=== PATIENT | male | born 1945 ===

== ENCOUNTER 2022-12-17 07:17 | Inpatient (IN) | payer MEDICARE, OTHER, SELFPAY ==
[2022-12-17] VITALS (11 sets, daily range): BP systolic 124–154; BP diastolic 58–80; PULSE 67–100; RESP 16–20; TEMP 36.5–37.3; O2SAT 89–100; BMI 25.0
--- NOTE | ~2022-12-17 | CT_ITS ---
EXAM: Contrast-enhanced CT scan of the chest, abdomen, and pelvis. INDICATION: Fall. Chest and abdominal trauma. Lower back pain. COMPARISON: Lumbar spine x-rays June 28, 2019 TECHNIQUE: Multidetector helical imaging of the chest, abdomen, and pelvis was obtained from the thoracic inlet through the pubic symphysis following administration of 85 cc of Omnipaque 350 IV contrast. Coronal and sagittal reformatted images that were obtained were also reviewed. This CT examination was performed using dose optimization techniques as appropriate, variously including the following: *Automated exposure control *Adjustment of mA and/or kV according to patient size (this includes techniques or standardized protocols for targeted exams where dose is matched to indication/reason for exam; i.e. extremities or head) *Use of iterative reconstruction technique DLP: 990 mGy-cm FINDINGS: CHEST: Central airways are patent although some mild peripheral mucous plugging is noted. The lungs are adequately aerated. There are moderate emphysematous changes present. There are a few small calcified and noncalcified pleural plaques appreciated. There is suspected compressive atelectasis of the lingula. Small left-sided pleural effusion with overlying airspace disease, nonspecific but likely atelectasis. There is no pneumothorax. No suspicious pulmonary nodules. The heart is normal in size. Coronary artery calcifications are present. There is no pericardial effusion. Normal caliber thoracic aorta. Mildly dilated main pulmonary artery suggesting pulmonary arterial hypertension. No gross mediastinal or hilar lymphadenopathy. No pathologically enlarged axillary lymph nodes. ABDOMEN/PELVIS: The liver is normal in size. The gallbladder is normal in appearance. There is mild fatty atrophy of the pancreas. The spleen is unremarkable. There are numerous hypodense foci of the left kidney, some of which demonstrate cystic characteristics but many of which are too small to accurately characterize. There is no hydronephrosis of the left kidney. There is a mild perinephric stranding of the left kidney which is nonspecific. There is a 2.9 cm left adrenal mass which is nonspecific. The right kidney and right adrenal gland are not present. The stomach is decompressed. Normal caliber loops of small and large bowel. Mild colonic stool burden. Normal appendix. There is mild circumferential thickening of the distal sigmoid colon and rectum with minimal pericolonic mesenteric stranding, nonspecific. Severe atherosclerotic disease of the abdominal aorta. There is minimal dilatation of the infrarenal abdominal aorta measuring up to 2.5 cm. No gross retroperitoneal lymphadenopathy. The bladder is normal in appearance. The prostate gland is normal in size. Mild mild colonic diverticulosis without CT evidence to suggest active diverticulitis. No inguinal lymphadenopathy. No well defined pelvic fluid collection. OSSEOUS STRUCTURES Diffuse osteopenia. Old postsurgical changes of the left shoulder. Old healed bilateral rib fractures. Moderate diffuse degenerative changes of the spine. T9 compression deformity, age indeterminate. CT/CT abdomen pelvis w IV con IMPRESSION: 1. Moderate emphysema. 2. Small left-sided pleural effusion with overlying airspace disease, nonspecific but likely atelectasis. 3. Mildly dilated main pulmonary artery suggesting pulmonary arterial hypertension. 4. 2.9 cm left adrenal mass. This is a nonspecific finding. This can be further evaluated with nonemergent adrenal protocol MRI as clinically indicated. 5. Numerous hypodense foci of the left kidney, some of which demonstrate cystic characteristics but many of which are too small to accurately characterize. These can be further evaluated with dedicated renal ultrasound. 6. Mild colonic diverticulosis without CT evidence to suggest active diverticulitis. 7. Mild circumferential thickening of the distal sigmoid colon and rectum with minimal pericolonic mesenteric stranding. This is a nonspecific finding but may represent proctitis. 8. T9 compression deformity, age indeterminate.
--- NOTE | ~2022-12-17 | CT_ITS ---
EXAM: Noncontrast CT scan of the head and cervical spine. INDICATION: Fall with head strike. Pain. COMPARISON: Head CT the 2019 TECHNIQUE: Axial slices were obtained from skull base to vertex and displayed. This was followed by helical, multislice, multidetector axial images from the occiput to the upper thorax. Coronal and sagittal reformats of the cervical spine in addition to coronal reformats of the head were obtained at the technologist workstation. DLP: 1165 mGy-cm FINDINGS: HEAD: There is no evidence of acute intracranial hemorrhage or territorial infarction. No abnormal mass effect or midline shift is appreciated. Ramirez-white differentiation is well preserved. No extra-axial fluid collections. The ventricular system and cortical sulci are prominent, consistent with age-appropriate volume loss. Mild cerebellar volume loss is also appreciated. There are areas of low density in the periventricular and subcortical white matter, most consistent with sequelae of microvascular ischemic change. The osseous structures and soft tissues are normal. Similar small lipoma of the left frontal scalp. There is mild to moderate calcifications of the cavernous internal carotid arteries. The visualized paranasal sinuses and mastoid air cells are well aerated. SPINE: The cervical spine is visualized in its entirety. Alignment is within normal limits. Cervical vertebral body heights are maintained. There is mild narrowing of the C3/4 disc space height. Other cervical disc spaces are relatively well-maintained. There is moderate diffuse facet hypertrophy bilaterally with osseous fusion of most facet joints throughout the cervical spine. Coarse calcifications of the right thyroid lobe. Visualized lung apices are well aerated. CT/CT cervical spine wo IV con IMPRESSION: 1. No acute intracranial pathology. 2. No fractures or dislocations of the cervical spine.
--- NOTE | ~2022-12-17 | US_ITS ---
EXAMINATION: US VENOUS ULTRASOUND WITH DOPPLER LOWER EXTREMITY, BILATERAL CLINICAL INFORMATION: History of cough bilaterally bilateral calf pain COMPARISON: None available. TECHNIQUE: Ultrasound of the deep veins is performed from the hip to the calf with compression sonography and color and pulse Doppler assessment. Spectral analysis with color-flow imaging is performed. FINDINGS: RIGHT: There is normal venous compression and respiratory variation and augmented flow. The visualized common femoral vein, superficial femoral vein, profunda femoral vein, popliteal vein, and the trifurcation region shows no evidence of deep venous thrombosis. Right peroneal vein not well visualized limiting evaluation at this level. Right popliteal fossa cyst measuring 2.4 x 1.8 cm. Splayed lymph node in the right groin measuring 2.5 x 0.4 cm. LEFT: There is normal venous compression and respiratory variation and augmented flow. The visualized common femoral vein, superficial femoral vein, profunda femoral vein, popliteal vein, and the trifurcation region shows no evidence of deep venous thrombosis. There is no significant popliteal fossa cyst. If the patient's symptoms persist, followup ultrasound in 5 days 7 days might be of value to exclude proximal propagation from a non-visualized calf vein. US/US venous duplex LE BI IMPRESSION: 1. No DVT demonstrated in the bilateral lower extremity. 2. Right peroneal vein not well visualized limiting evaluation at this level. 3. Right popliteal fossa cyst measuring 2.4 x 1.8 cm.
--- NOTE | ~2022-12-17 | CT_ITS ---
EXAMINATION: CT THORACIC AND LUMBAR SPINE WITHOUT CONTRAST CLINICAL INDICATION: Back pain. COMPARISON: Lumbar spine 06/28/2019. TECHNIQUE: Axial 2 mm thin and reformatted 2 mm thin sagittal and coronal images of thoracic and lumbar spine were obtained without contrast. This CT examination was performed using dose optimization technique as appropriate, variously including the following: Automated exposure control Adjustment of MA and/or KV according to patient size(this includes techniques or standardized protocols for targeted exams where dose is matched to indication/reason for exam; extremities or head. Use of iterative reconstruction techniques. DLP: 1916 mGy-cm FINDINGS: THORACIC SPINE: Severe osteopenia is noted. On sagittal reconstructed images there is exaggerated thoracic kyphosis. There is mild loss of T11 vertebral height of indeterminate age. There is no posterior spinal component causing spinal canal stenosis. The neural foramina are patent bilaterally. Rest of the vertebral heights is normal. There is smooth calcification of anterior longitudinal ligament likely ankylosing spondylitis. No aggressive lytic or sclerotic process seen. Visualized bony thorax is unremarkable. The lungs are well expanded and clear. There are small bilateral pleural effusions with right lower lobe consolidation and air bronchograms. There are calcified pleural plaques posteriorly on the left. Heart size enlarged. No pericardial effusion. There are coronary artery calcifications present. LUMBAR SPINE: There is severe osteopenia. There is normal lumbar lordosis. The vertebral heights, alignment and disc heights are normal. No visible acute fracture, dislocation or subluxation seen. There is endplate sclerosis L5-S1 disc level. The disc levels are maintained normal. There is moderate bilateral L5-S1, mild L4-L5 facet joint arthropathy. 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 Otherwise rest of the paravertebral soft tissues are normal. The SI joints, the sacrum and iliac bones are grossly unremarkable. There are bilateral renal cysts and nonobstructive radiopaque calculi left kidney. The right kidney is absent. The urinary bladder is distended. CT/CT thoracic spine wo IV con IMPRESSION: Exaggerated thoracic kyphosis with ankylosing spondylitis throughout thoracic spine. There is compression fracture of T11 vertebra with mild anterior wedging of indeterminate age. Correlate with bone scan. The lumbar spine is grossly unremarkable with no acute fracture seen. There are bilateral small pleural effusions with the right lower lobe consolidation. Right kidney is absent correlate with clinical exam. Left renal calculi without caliectasis or hydronephrosis. Multiple left renal cysts.
--- NOTE | 2022-12-17 07:21 | ECG_ITS ---
Test Reason : WEAKNESS Blood Pressure : / mmHG Vent. Rate : 107 BPM Atrial Rate : 107 BPM P-R Int : 124 ms QRS Dur : 094 ms QT Int : 316 ms P-R-T Axes : 056 049 076 degrees QTc Int : 421 ms Sinus tachycardia Inferior infarct , age undetermined ST & T wave abnormality, consider lateral ischemia Abnormal ECG When compared with ECG of 09-JUN-2019 16:33, Vent. rate has increased BY 51 BPM Non-specific change in ST segment in Lateral leads Nonspecific T wave abnormality now evident in Inferior leads T wave inversion now evident in Lateral leads Referred By: Odessa Momin Electronically Signed By:LOR GUZMAN MD
--- NOTE | 2022-12-17 07:37 | ED_ITS ---
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 No head strike or loss of consciousness per patient however poor historian. Daughter at bedside reports the patient's gait has been slowed, he has been confused, has had multiple falls around the house, has not wanted to get out of bed, it has been waking up sweating over the last 4 days which has been a drastic change from his baseline. Patient walks with a cane at baseline however as needed a walker over the past week. Patient's main complaint today is back pain and generalized weakness. Denies fatigue, fevers/chills, chest pain, shortness of breath, cough, nausea, vomiting, diarrhea, constipation, hematuria, dysuria, saddle paresthesias, urinary/bowel incontinence and retention. Per daughter at the bedside who he lives with patient has not been eating or drinking much. On EMS arrival patient was found to be hypoglycemic at 42 and was given a tube of glucose a D 10, glucose increased to 150. Related Data Allergies Allergy/AdvReac Type Severity Reaction Status Date / Time No Known Allergies Allergy Unknown UNKNOWN Verified 12/17/22 07:39 [NO KNOWN ALLERGIES] Review of Systems Review of Systems: Constitutional : No Weight loss, No Fever, No Chills, + Fatigue, + Malaise Eyes: No Eye Pain, No Swelling, No Redness Cardiovascular : No Chest Pain, No SOB, No Dyspnea on Exertion, No Orthopnea, No Edema, No Palpitations Respiratory : No Cough, No Sputum, No Wheezing Gastrointestinal : No Nausea, No Vomiting, No Diarrhea, No Constipation, No abdominal Pain, No Hematochezia, No Melena Genitourinary : No Dysuria, No Urinary Frequency, No Hematuria, Musculoskeletal : + back pain, No Myalgias, No Joint Swelling Skin : No Skin Lesions, No rash Neuro : + Weakness, No Numbness, No Dizziness, No Headache Heme/Lymph: No Bruising, No Bleeding,No Lymphadenopathy All other systems reviewed and are negative Yes all other systems are reviewed and are negative COUNT INCLUDES THE [facility] Past Medical History Attestation statement: The following information was validated with the patient. Source: old records reviewed and nursing notes reviewed Medical History (Updated 12/17/22 @ 11:42 by JULIEN Albright) Compression fracture of vertebrae Crohn's colitis Depression DVT (deep venous thrombosis) Emphysema of lung Frequent falls History of ETOH abuse Kidney anomaly, congenital Kyphosis Mild dementia Poor balance PVD (peripheral vascular disease) Spinal stenosis Tremor Type 2 diabetes mellitus Social History Social History Alcohol intake: current Alcohol intake frequency: former alcohol drinker Smoked in Last 30 Days: Yes Use of substances other than those prescribed or required for medical reasons: No Advance Directives: No Physical Exam Vital Signs: Vital Signs: Last Vital Signs Temp 99.1 F 12/17/22 11:19 Pulse 73 12/17/22 11:19 Resp 16 12/17/22 11:19 BP 128/59 L 12/17/22 11:19 Pulse Ox 100 12/17/22 11:19 O2 Del Method Nasal Cannula 12/17/22 11:19 O2 Flow Rate 3 12/17/22 11:19 BMI result Body Mass Index 25.0 Appearance: Alert.? Oriented X3.? No acute distress.? Appears uncomfortable lying on his back. Head: Normocephalic, atraumatic, no step-offs or deformities Eyes: Pupils equal, round and reactive to light.? ENT: Pharynx normal.? Neck: Normal inspection.? Neck supple.? CVS: Rapid rate normal rhythm, likely sinus tachycardia..? Pulses normal.? Respiratory: No respiratory distress.? Breath sounds normal.? Abdomen: Soft, nontender, distended abdomen. Normoactive bowel sounds thr oughout. Skin: Skin warm and dry.? Normal skin color.? Normal skin turgor.? Extremities: No lower extremity edema.? No calf ttp. Global weakness. Back: No midline tenderness, no C-spine tenderness, full range of motion, no CVA tenderness bilaterally + bilateral lumbar paraspinous tenderness Neuro: Oriented X 3.? No motor deficit.? No sensory deficit. CN 2-12 intact . No saddle paresthesias. Course Reevaluation(s) Reevaluation #1: CBC with slight leukocytosis 11.9 and a normocytic anemia. Chronic thrombocytopenia noted not deviating from baseline. Potassium 2.7 oral potassium will be given at this time. No other acute electrolyte abnormalities requiring intervention. Patient is noted to have an elevated CPK consistent with acute rhabdomyolysis likely secondary to falls. Fluids will be given. Troponin 22.4, EKG nonischemic unlikely ACS. BNP within normal limits unlikely CHF. Salicylates acetaminophen negative. COVID negative. Pending repeat troponin, CT head, neck, chest, abdomen pelvis. Time: 09:10 Reevaluation #2: CT head and brain with no acute intracranial pathology. No fractures or disloc ations of the cervical spine. CT abdomen, chest pending. Venous duplex pending. Time: 10:52 Reevaluation #3: DVT study bilaterally with no DVT demonstrated. Right peroneal vein not well visualized limiting evaluation at that level. Right popliteal fossa cyst measuring 2.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 Colonic diverticulosis without active diverticulitis. Mild circumferential wall thickening of sigmoid colon and rectum with proctocolitis mesenteric stranding, could represent proctitis, T9 compression deformity. Will order antibiotics at this time for possible proctitis, patient poor historian, slight white count. Will also order to Lidoderm patch for T9 compression deformity. This is likely secondary to falls. UA pending. Discussed case with hospitalist. Time: 11:41 Medications Administered Discontinued Medications Generic Name Dose Route Start Last Admin Trade Name Freq PRN Reason Stop Dose Admin Sodium Chloride 1,000 mls @ 999 mls/hr 12/17/22 09:15 12/17/22 09:52 Ns IV 12/17/22 10:15 999 mls/hr .Q1H1M CHRIS Administration Iohexol 100 ml 12/17/22 10:32 12/17/22 10:32 Iohexol 350 Mg/Ml 100 Ml Infus..Btl IV 12/17/22 10:33 85 ml ONCE ONE Administration Morphine Sulfate 4 mg 12/17/22 09:35 12/17/22 09:40 Morphine Sulfate 4 Mg/Ml Cartridge IVPUSH 12/17/22 09:36 4 mg ONCE ONE Administration Protocol Potassium Chloride 40 meq 12/17/22 09:09 12/17/22 09:40 Potassium Chloride Packet 20 Meq Packet PO 12/17/22 09:10 40 meq ONCE ONE Administration Medical Decision Making Medical Decision Making [facility] Narrative: 0740 77-year-old male presenting with increasing generalized weakness and multiple falls on Eliquis. Physical exam significant for stage 2 pressure ulcer to L hip region. Likely physical deconditioning with possible UTI vs electrolyte abnormalities versus dysrhythmia. On exam low suspicion for traumatic injury to head, neck, chest, abdomen and pelvis. Unlikely stroke, posterior stroke. Back pain likely contusion, musculoskeletal, muscle spasm, will rule out fracture, dislocation, traumatic subluxations. No signs of cord compression, cauda equina, myelopathy or epidural abscess. Will rule out ACS although unlikely based off patient history. Patient's weakness is likely contributed to physical deconditioning and cognitive decline. Fall likely mechanical in nature or secondary to physical deconditioning I do not suspect preceding symptoms to fall according to daughter and patient. Will rule out rhabdomyolysis as patient has had multiple falls and unclear down time. I do not suspect syncopal episodes or seizures. Any will rule out pneumonia. Low suspicion for any PEs, DVT secondary to pa tient being on anticoagulants and med compliant. However due to calf pain will obtain venous duplex of bilateral lower extremities to rule out DVT. No signs of arterial occlusion or threat to limb. Pressure ulcer likely simple stage II, no signs of osteomyelitis or overlying erythema or erysipelas. Plan- labs, urine, imaging. Differential Diagnosis Differential Diagnoses: The differential diagnosis associated with the presentation includes Likely physical deconditioning with possible UTI vs electrolyte abnormalities versus dysrhythmia. On exam low suspicion for traumatic injury to head, neck, chest, abdomen and pelvis. Unlikely stroke, posterior stroke. Back pain likely contusion, musculoskeletal, muscle spasm, will rule out fracture, dislocation, traumatic subluxations. No signs of cord compression, cauda equina, myelopathy or epidural abscess. Will rule out ACS although unlikely based off patient hist ory. Patient's weakness is likely contributed to physical deconditioning and cognitive decline. Fall likely mechanical in nature or secondary to physical deconditioning I do not suspect preceding symptoms to fall according to daughter and patient. Will rule out rhabdomyolysis as patient has had multiple falls and unclear down time. I do not suspect syncopal episodes or seizures. However due to calf pain will obtain venous duplex of bilateral lower extremities to rule out DVT. No signs of arterial occlusion or threat to limb. Pressure ulcer likely simple stage II, no signs of osteomyelitis or overlying erythema or erysipelas. Admission/Observation Consideration of admission/observation: Escalation of care including admiss ion/observation considered In this 77-year-old male with acute change from baseline and multiple falls on AC I considered admission. Consult Healthcare Provider Management of the patient was discussed with: Hospitalist Lab Data MDM Lab Attestation statement: I reviewed the patient's lab results. 12/17/22 07:54 12/17/22 07:54 Labs: Lab Results 12/17/22 12/17/22 12/17/22 Range/Units 07:54 07:54 07:54 WBC 11.9 H (4.8-10.8) X10*3/uL RBC 4.19 L (4.60-5.80) X10*6/uL Hgb 12.6 L (14.0-18.0) g/dl Hct 39.5 L (42.0-52.0) % MCV 94.3 (80.0-98.0) fL MCH 30.1 (27.0-33.0) pg MCHC 31.9 (31.0-36.0) g/dl RDW 14.6 (11.0-16.0) % Plt Count 142 L (160-400) X10*3/uL MPV 10.1 (9.4-12.4) fL Immature Gran % (Auto) 1.3 H (0.0-0.4) % Neut % (Auto) 85.8 H (45-73) % Lymph % (Auto) 6.3 L (20-40) % Mccormick % (Auto) 6.2 (2-11) % Eos % (Auto) 0.1 (0-4) % Baso % (Auto) 0.3 (0-2) % Lymph # (Auto) 0.8 L (1.2-4.9) X10*3/uL Mccormick # (Auto) 0.7 (0.1-1.2) X10*3/uL Eos # (Auto) 0.0 (0.0-0.4) X10*3/uL Baso # (Auto) 0.0 (0.0-0.2) X10*3/uL Abs Immat Gran (auto) 0.16 H (0.00-0.03) X10*3/uL Absolute Neuts (auto) 10.2 H (2.0-8.3) x10*3/uL Absolute Nucleated RBC 0.000 (0.0-0.012) X10*3/uL Nucleated RBC % (auto) 0.0 (0.0-0.2) /100WBC PT 12.3 (11.1-13.3) SEC INR 1.0 (0.9-1.1) Sodium 136 (135-145) mmol/L Potassium 2.7 L (3.3-5.1) mmol/L Chloride 102 (96-108) mmol/L Carbon Dioxide 23 (22-29) mmol/L Anion Gap 14 (12-20) BUN 11 (9-16) mg/dL Creatinine 0.99 (0.5-1.4) mg/dL Estim Creat Clear Calc 54.3 Estimated GFR > 60 POC Glucose (60-115) mg/dL Random Glucose 190 H (60-115) mg/dL Calcium 8.4 (8.4-10.2) mg/dL Magnesium 1.8 (1.6-2.6) mg/dL Total Bilirubin 0.9 (0.0-1.0) mg/dL AST 61 H (5-37) U/L ALT 23 (0-40) U/L Alkaline Phosphatase 69 (39-117) U/L Total Creatine Kinase 1981 H (38-174) U/L Troponin I High Sens (<3.5-35.0) ng/L B-Natriuretic Peptide (<100) pg/mL Total Protein 6.1 L (6.5-8.0) g/dL Albumin 2.9 L (3.5-5.0) g/dL Salicylates (15-30) mg/dL Acetaminophen (<30) mcg/mL Ethyl Alcohol < 10 mg/dL COVID-19 ([facility]) (Negative) COVID-19 Clin Com 12/17/22 12/17/22 12/17/22 Range/Units 07:54 07:54 07:54 WBC (4.8-10.8) X10*3/uL RBC (4.60-5.80) X10*6/uL Hgb (14.0-18.0) g/dl Hct (42.0-52.0) % MCV (80.0-98.0) fL MCH (27.0-33.0) pg MCHC (31.0-36.0) g/dl RDW (11.0-16.0) % Plt Count (160-400) X10*3/uL MPV (9.4-12.4) fL Immature Gran % (Auto) (0.0-0.4) % Neut % (Auto) (45-73) % Lymph % (Auto) (20-40) % Mccormick % (Auto) (2-11) % Eos % (Auto) (0-4) % Baso % (Auto) (0-2) % Lymph # (Auto) (1.2-4.9) X10*3/uL Mccormick # (Auto) (0.1-1.2) X10*3/uL Eos # (Auto) (0.0-0.4) X10*3/uL Baso # (Auto) (0.0-0.2) X10*3/uL Abs Immat Gran (auto) (0.00-0.03) X10*3/uL Absolute Neuts (auto) (2.0-8.3) x10*3/uL Absolute Nucleated RBC (0.0-0.012) X10*3/uL Nucleated RBC % (auto) (0.0-0.2) /100WBC PT (11.1-13.3) SEC INR (0.9-1.1) Sodium (135-145) mmol/L Potassium (3.3-5.1) mmol/L Chloride (96-108) mmol/L Carbon Dioxide (22-29) mmol/L Anion Gap (12-20) BUN (9-16) mg/dL Creatinine (0.5-1.4) mg/dL Estim Creat Clear Calc Estimated GFR POC Glucose (60-115) mg/dL Random Glucose (60-115) mg/dL Calcium (8.4-10.2) mg/dL Magnesium (1.6-2.6) mg/dL Total Bilirubin (0.0-1.0) mg/dL AST (5-37) U/L ALT (0-40) U/L Alkaline Phosphatase (39-117) U/L Total Creatine Kinase (38-174) U/L Troponin I High Sens 22.4 (<3.5-35.0) ng/L B-Natriuretic Peptide 82 (<100) pg/mL Total Protein (6.5-8.0) g/dL Albumin (3.5-5.0) g/dL Salicylates (15-30) mg/dL Acetaminophen (<30) mcg/mL Ethyl Alcohol mg/dL COVID-19 ([facility]) Negative (Negative) COVID-19 Clin Com See Note 12/17/22 12/17/22 12/17/22 Range/Units 07:54 07:54 10:51 WBC (4.8-10.8) X10*3/uL RBC (4.60-5.80) X10*6/uL Hgb (14.0-18.0) g/dl Hct (42.0-52.0) % MCV (80.0-98.0) fL MCH (27.0-33.0) pg MCHC (31.0-36.0) g/dl RDW (11.0-16.0) % Plt Count (160-400) X10*3/uL MPV (9.4-12.4) fL Immature Gran % (Auto) (0.0-0.4) % Neut % (Auto) (45-73) % Lymph % (Auto) (20-40) % Mccormick % (Auto) (2-11) % Eos % (Auto) (0-4) % Baso % (Auto) (0-2) % Lymph # (Auto) (1.2-4.9) X10*3/uL Mccormick # (Auto) (0.1-1.2) X10*3/uL Eos # (Auto) (0.0-0.4) X10*3/uL Baso # (Auto) (0.0-0.2) X10*3/uL Abs Immat Gran (auto) (0.00-0.03) X10*3/uL Absolute Neuts (auto) (2.0-8.3) x10*3/uL Absolute Nucleated RBC (0.0-0.012) X10*3/uL Nucleated RBC % (auto) (0.0-0.2) /100WBC PT (11.1-13.3) SEC INR (0.9-1.1) Sodium (135-145) mmol/L Potassium (3.3-5.1) mmol/L Chloride (96-108) mmol/L Carbon Dioxide (22-29) mmol/L Anion Gap (12-20) BUN (9-16) mg/dL Creatinine (0.5-1.4) mg/dL Estim Creat Clear Calc Estimated GFR POC Glucose 118 H (60-115) mg/dL Random Glucose (60-115) mg/dL Calcium (8.4-10.2) mg/dL Magnesium (1.6-2.6) mg/dL Total Bilirubin (0.0-1.0) mg/dL AST (5-37) U/L ALT (0-40) U/L Alkaline Phosphatase (39-117) U/L Total Creatine Kinase (38-174) U/L Troponin I High Sens 25.2 (<3.5-35.0) ng/L B-Natriuretic Peptide (<100) pg/mL Total Protein (6.5-8.0) g/dL Albumin (3.5-5.0) g/dL Salicylates < 5.0 L (15-30) mg/dL Acetaminophen < 17 (<30) mcg/mL Ethyl Alcohol mg/dL COVID-19 ([facility]) (Negative) COVID-19 Clin Com Independent Interpretation I performed an independent interpretation of an: EKG (Ventricular rate of 107, LA normal, QRS normal, QT/QTC normal. EKG with sinus tachycardia, no ST elevations or inversions concerning for acute ischemia.) and CT Scan (CT/CT head/brain wo IV con IMPRESSION: 1. No acute intracranial pathology. 2. No fractures or dislocations of the cervical spine. ) Radiology Impression Discussion of test interpretation with radiology: I have reviewed the radiologist's reading. Core Measures AMI core measures followed: Yes Measure exclusions: not indicated Critical Care Time Critical Care Time Critical Care Time: No Discharge Plan Discharge Clinical Impression: Frequent falls, Weakness, Rhabdomyolysis, Pressure ulcer, Lower back pain, Acute hypokalemia, Compression deformity of vertebra, Proctitis Patient Disposition: Admitted As Inpatient
[2022-12-17 07:59] LABS: Glucose, Whole Blood 118 mg/dL (60-115)
[2022-12-17 08:00] LABS: MANUAL DIFF FLAG NO
--- NOTE | 2022-12-17 08:02 | PC.NURSE ---
patient a&ox2 p/p, pt c/o 02/28 back pain, lungs diminished throughout- pt placed on 2L NC due to O2 sat of 89% pt quickly went up to 98%, decreased to 1L pt now 94%, abd is firm/distended but non tender, + bowel sounds in all quadrants, 1+ edema noted to BLE, left hip area noted bed sore and left lower leg notable abrasion which the daughter feels came from the bed pad he was laying on vs from the fall. Pt had BLE weakness- unable to lift/hold either leg, EKG performed, poc obtained as he was hypoglycemic upon arrival of ems- poc here was 118, labs drawn, pt has a history of incontinence and wears a brief but also does use the bathroom. Family at bedside, call ye within reach, will continue to monitor.
[2022-12-17 08:08] LABS: Prothrombin Time 12.3 SEC (11.1-13.3)
[2022-12-17 08:22] LABS: Alanine Aminotransferase 23 U/L (0-40); Albumin Level 2.9 g/dL (3.5-5.0); Alkaline Phosphatase 69 U/L (39-117); Anion Gap 14 (12-20); Aspartate Amino Transferase 61 U/L (5-37); B Type Natriuretic Peptide 82 pg/mL (<100); Bilirubin Total 0.9 mg/dL (0.0-1.0); Blood Urea Nitrogen 11 mg/dL (9-16); Calcium 8.4 mg/dL (8.4-10.2); Carbon Dioxide 23 mmol/L (22-29); Chloride 102 mmol/L (96-108); Creatinine Clr Calc Pharmacy 54.3; Estimated Glomerular Filt Rate > 60; Ethanol < 10 mg/dL; Glucose Random 190 mg/dL (60-115); Magnesium 1.8 mg/dL (1.6-2.6); Potassium 2.7 mmol/L (3.3-5.1); Sodium 136 mmol/L (135-145); Total Protein 6.1 g/dL (6.5-8.0)
[2022-12-17 08:24] LABS: Troponin-I High Sensitivity 22.4 ng/L (<3.5-35.0)
[2022-12-17 08:25] LABS: Basophils Percent Auto 0.3 % (0-2); Eosinophils Percent Auto 0.1 % (0-4); Hematocrit 39.5 % (42.0-52.0); Hemoglobin 12.6 g/dl (14.0-18.0); Imm Gran Abs Auto 0.16 X10*3/uL (0.00-0.03); Imm Gran Pct Auto 1.3 % (0.0-0.4); Lymphocytes Absolute Auto 0.8 X10*3/uL (1.2-4.9); Lymphocytes Percent Auto 6.3 % (20-40); Mean Corpuscular HGB Conc 31.9 g/dl (31.0-36.0); Mean Corpuscular Hemoglobin 30.1 pg (27.0-33.0); Mean Corpuscular Volume 94.3 fL (80.0-98.0); Mean Platelet Volume 10.1 fL (9.4-12.4); Monocytes Absolute Auto 0.7 X10*3/uL (0.1-1.2); Monocytes Percent Auto 6.2 % (2-11); Neutrophils Absolute Auto 10.2 x10*3/uL (2.0-8.3); Neutrophils Percent Auto 85.8 % (45-73); Platelet Count 142 X10*3/uL (160-400); Red Blood Count 4.19 X10*6/uL (4.60-5.80); Red Cell Distribution Width 14.6 % (11.0-16.0); White Blood Count 11.9 X10*3/uL (4.8-10.8)
[2022-12-17 08:28] LABS: Salicylate < 5.0 mg/dL (15-30)
[2022-12-17 08:31] LABS: COVID-19 Test Negative (Negative); IDNOW Serial# BCCEAD1C
[2022-12-17 08:34] LABS: Acetaminophen LAB < 17 mcg/mL (<30)
[2022-12-17] MEDS: Potassium Chloride Packet 20 MEQ PACKET 40 MEQ PO (09:40)
[2022-12-17] MEDS: Morphine Sulfate 4 MG/ML CARTRIDGE IVPUSH (09:40)
--- NOTE | 2022-12-17 09:49 | PC.NURSE ---
pt a&ox3, vss aside from low O2 (86) - put pt on 3L via nasal cannula, nsr on the court monitor, medications and IVF administered per provider order, orthostatic vs performed and documented. pt verbalizing 10/ center of spine pain - given morphine per provider order.
[2022-12-17] MEDS: 0.9 % Sodium Chloride 1,000 ML 999 ML IV (09:52)
--- NOTE | 2022-12-17 10:18 | PC.NURSE ---
pt's pain level reassessed post medication administration - pt verbalizing pain level slightly decreased to an 8/10. ultrasound bedside with patient. pt's daughter leaving facility stating that she needs to go home and take care of her son who has autism - verbalizes that she will either come back or call the facility looking for an update on her father.
[2022-12-17] MEDS: iohexoL 350 MG/ML 100 ML INFUS..BTL IV (10:32)
--- NOTE | 2022-12-17 11:22 | PC.NURSE ---
a&ox3, vss, nsr on the court monitor, IVF still running, pt verbalizes no indication of pain relief since the last time that he was reassessed post pain medication - pt still verbalizing 8/10 pain. pt resting comfortably with the lights dimmed. call ye placed within reach.
[2022-12-17 11:29] LABS: Troponin-I High Sensitivity 25.2 ng/L (<3.5-35.0)
[2022-12-17] MEDS: Lidocaine 4 % Patch ADH..PATCH 1 PATCH TRANSDERMA (11:44)
--- NOTE | 2022-12-17 11:47 | PC.NURSE ---
medication administered per provider order.
--- NOTE | 2022-12-17 11:50 | P.HPHOSP_ITS ---
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 Patient is alert and oriented to self only and thus incapable of providing accurate HPI. HPI obtained from phone call her daughter and chart review. Patient lives with daughter who notes patient was almost completely independent except for taking baths up until 2 weeks ago when he started to develop leg weakness and unsteadiness on his feet. Patient began using a cane occasionally during the day but severely deteriorated over the we ekend and began using a walker on Monday of this week. For the past couple of days patient apparently has barely been able to ambulate on his own and has had 10+ falls in the house. Pt and daughter deny headstrike or LOC. Daughter also notes patient has been complaining of bilateral calf pain, and patient has had some increased confusion over the past couple of days. Of note, patient has a history of Crohn's disease but is intolerant of most medications, only takes Imodium b.i.d. In the ED patient's BP little soft at 128/59. Labs were significant for leukocytosis of 11.9, stable H&H of 12.6/39 point, hypokalemia of 2.7, CPK of 1981. Troponins negative. Renal function baseline. UA positive for UTI. CT of chest showed moderate emphysema with small left-sided effusion with overlying airspace disease, likely atelectasis. Also showed likely pulmonary arterial hypertension. CT of abdomen and pelvis with numerous findings: a 2.9 cm left adrenal mass that is nonspecific and could be further evaluated with outpatient nonemergent MRI; numerous hypodense foci of left kidney; diverticulosis without evidence of diverticulitis; mild circumferential thickening in the distal sigmoid colon and rectum with minimal pericolonic mesenteric stranding possibly reflective of proctitis; and T9 compression deformity of indeterminate age. CT?of head found no acute intracranial pathology. CT of cervical spine found no fractures or dislocations. Venous duplex of lower extremities showed no DVT de monstrated bilaterally, the right peroneal vein not well visualized. Did find right popliteal fossa cyst measuring 2.4 x 1.8 cm. EKG demonstrated sinus tachycardia of [address] and T-wave abnormalities. Pt was treated with potassium chloride, morphine, IVF, and lidocaine patch. Pt will be admitted to the [facility] forl treatment and further evaluation of?rhabdomyolysis, acute metabolic encephalopathy, UTI, and generalized weakness with IVF and IV antibiotics. Review of Systems Review of Systems: Recent falls Bilateral calf pain Confusion Generalized weakness Limited in scope d/t pt's mentation Yes all other systems are reviewed and are negative [facility] Medical History Compression fracture of vertebrae Crohn's colitis Depression DVT (deep venous thrombosis) Emphysema of lung Frequent falls History of ETOH abuse Kidney anomaly, congenital Kyphosis Mild dementia Poor balance PVD (peripheral vascular disease) Spinal stenosis Tremor Type 2 diabetes mellitus Social History Alcohol intake: current Alcohol intake frequency: former alcohol drinker Patient Tobacco Use Status: Never used Tobacco Smoked in Last 30 Days: Yes Use of substances other than those prescribed or required for medical reasons: No Advance Directives: No Nutrition Risks: No Nutritional Risk Meds Allergies Allergy/AdvReac Type Severity Reaction Status Date / Time No Known Allergies Allergy Unknown UNKNOWN Verified 12/17/22 07:39 [NO KNOWN ALLERGIES] Active Medications: Current Medications Ceftriaxone Sodium 1 gm/ (Sodium Chloride) 50 mls @ 100 mls/hr IV ONCE ONE Stop: 12/17/22 12:11 Pharmacy Consult (Consult Rx Perform Med Rec) 1 each MISCELLANE ONCE PRN PRN Reason: Consult order Home Medications Medication Instructions Recorded Confirmed Last Taken Type apixaban 2.5 mg tablet (Eliquis) 2.5 mg PO BID 12/17/22 12/17/22 12/16/22 History atorvastatin 40 mg tablet 40 mg PO BEDTIME 12/17/22 12/17/22 12/16/22 History bupropion HCl 150 mg tablet,12 hr 150 mg PO DAILY 12/17/22 12/17/22 Unknown History sustained-release cilostazol 100 mg tablet 100 mg PO BID 12/17/22 12/17/22 Unknown History glyburide 5 mg tablet 10 mg PO BID 12/17/22 12/17/22 Unknown History loperamide 2 mg capsule 4 mg PO BID 12/17/22 12/17/22 12/16/22 History phenylephrine-guaifenesin ER 25 1 tab PO DAILY 12/17/22 12/17/22 Unknown History mg-800 mg tablet,extended release,12hr pioglitazone 30 mg tablet 30 mg PO DAILY 12/17/22 12/17/22 Unknown History propranolol 40 mg tablet 40 mg PO DAILY 12/17/22 12/17/22 Unknown History Physical Exam Vital Signs and Narrative: Vital Signs: Last Vital Signs Temp 99.1 F 12/17/22 11:19 Pulse 73 12/17/22 11:19 Resp 16 12/17/22 11:19 BP 128/59 L 12/17/22 11:19 Pulse Ox 100 12/17/22 11:19 O2 Del Method Nasal Cannula 12/17/22 11:19 O2 Flow Rate 3 12/17/22 11:19 BMI result Body Mass Index 25.0 Constitutional: Alert, pleasantly confused, in no acute distress. Mental Status: Oriented to person only, not to place, time, or situation. Eyes: Pupils are equal, round, and reactive to light. Ear, Nose, and Throat: Oropharynx clear, mucous membranes moist. Ears and nose without deformities. Trachea midline. Respiratory: Clear to auscultation bilaterally. No wheezing, rales, or rhonchi. Cardiovascular: S1, S2 regular. No murmurs, rubs, or gallops. Gastrointestinal: Abdomen soft, non-distended. Diffuse tenderness radiating to back. Normal bowel sounds. Neurologic: Positive straight leg test. Ankle and knee reflexes 1+ bilaterally Skin: Stage II decubitus ulcer on left hip. See picture below. Musculoskeletal: No cyanosis or clubbing. Extremities: No edema. Psychiatric: Normal mood and affect. Results Labs 12/17/22 07:54 12/17/22 07:54 Labs: Laboratory Results - last 24 hr 12/17/22 12/17/22 12/17/22 07:54 07:54 07:54 MCV 94.3 MCH 30.1 MCHC 31.9 RDW 14.6 Plt Count 142 L MPV 10.1 Immature Gran % (Auto) 1.3 H Neut % (Auto) 85.8 H Lymph % (Auto) 6.3 L Carlisle % (Auto) 6.2 Eos % (Auto) 0.1 Baso % (Auto) 0.3 Lymph # (Auto) 0.8 L Carlisle # (Auto) 0.7 Eos # (Auto) 0.0 Baso # (Auto) 0.0 Abs Immat Gran (auto) 0.16 H Absolute Neuts (auto) 10.2 H Absolute Nucleated RBC 0.000 Nucleated RBC % (auto) 0.0 PT 12.3 INR 1.0 Anion Gap 14 Estim Creat Clear Calc 54.3 Estimated GFR > 60 POC Glucose Random Glucose 190 H Calcium 8.4 Magnesium 1.8 Total Bilirubin 0.9 AST 61 H ALT 23 Alkaline Phosphatase 69 Total Creatine Kinase 1981 H B-Natriuretic Peptide Total Protein 6.1 L Albumin 2.9 L Salicylates Acetaminophen Ethyl Alcohol < 10 COVID-19 ([facility]) COVID-19 Clin Com 12/17/22 12/17/22 12/17/22 07:54 07:54 07:54 MCV MCH MCHC RDW Plt Count MPV Immature Gran % (Auto) Neut % (Auto) Lymph % (Auto) Carlisle % (Auto) Eos % (Auto) Baso % (Auto) Lymph # (Auto) Carlisle # (Auto) Eos # (Auto) Baso # (Auto) Abs Immat Gran (auto) Absolute Neuts (auto) Absolute Nucleated RBC Nucleated RBC % (auto) PT INR Anion Gap Estim Creat Clear Calc Estimated GFR POC Glucose Random Glucose Calcium Magnesium Total Bilirubin AST ALT Alkaline Phosphatase Total Creatine Kinase B-Natriuretic Peptide 82 Total Protein Albumin Salicylates < 5.0 L Acetaminophen < 17 Ethyl Alcohol COVID-19 ([facility]) Negative COVID-19 Clin Com See Note 12/17/22 07:54 MCV MCH MCHC RDW Plt Count MPV Immature Gran % (Auto) Neut % (Auto) Lymph % (Auto) Carlisle % (Auto) Eos % (Auto) Baso % (Auto) Lymph # (Auto) Carlisle # (Auto) Eos # (Auto) Baso # (Auto) Abs Immat Gran (auto) Absolute Neuts (auto) Absolute Nucleated RBC Nucleated RBC % (auto) PT INR Anion Gap Estim Creat Clear Calc Estimated GFR POC Glucose 118 H Random Glucose Calcium Magnesium Total Bilirubin AST ALT Alkaline Phosphatase Total Creatine Kinase B-Natriuretic Peptide Total Protein Albumin Salicylates Acetaminophen Ethyl Alcohol COVID-19 ([facility]) COVID-19 Clin Com Imaging Radiologist's Impressions: Impressions Abdomen/Pelvis CT 12/17/22 10:29 IMPRESSION: 1. Moderate emphysema. 2. Small left-sided pleural effusion with overlying airspace disease, nonspecific but likely atelectasis. 3. Mildly dilated main pulmonary artery suggesting pulmonary arterial hypertension. 4. 2.9 cm left adrenal mass. This is a nonspecific finding. This can be further evaluated with nonemergent adrenal protocol MRI as clinically indicated. 5. Numerous hypodense foci of the left kidney, some of which demonstrate cystic characteristics but many of which are too small to accurately characterize. These can be further evaluated with dedicated renal ultrasound. 6. Mild colonic diverticulosis without CT evidence to suggest active diverticulitis. 7. Mild circumferential thickening of the distal sigmoid colon and rectum with minimal pericolonic mesenteric stranding. This is a nonspecific finding but may represent proctitis. 8. T9 compression deformity, age indeterminate. Cervical Spine CT 12/17/22 10:29 IMPRESSION: 1. No acute intracranial pathology. 2. No fractures or dislocations of the cervical spine. Chest CT 12/17/22 10:29 IMPRESSION: 1. Moderate emphysema. 2. Small left-sided pleural effusion with overlying airspace disease, nonspecific but likely atelectasis. 3. Mildly dilated main pulmonary artery suggesting pulmonary arterial hypertension. 4. 2.9 cm left adrenal mass. This is a nonspecific finding. This can be further evaluated with nonemergent adrenal protocol MRI as clinically indicated. 5. Numerous hypodense foci of the left kidney, some of which demonstrate cystic characteristics but many of which are too small to accurately characterize. These can be further evaluated with dedicated renal ultrasound. 6. Mild colonic diverticulosis without CT evidence to suggest active diverticulitis. 7. Mild circumferential thickening of the distal sigmoid colon and rectum with minimal pericolonic mesenteric stranding. This is a nonspecific finding but may represent proctitis. 8. T9 compression deformity, age indeterminate. Head CT 12/17/22 10:29 IMPRESSION: 1. No acute intracranial pathology. 2. No fractures or dislocations of the cervical spine. Venous Duplex 12/17/22 10:34 IMPRESSION: 1. No DVT demonstrated in the bilateral lower extremity. 2. Right peroneal vein not well visualized limiting evaluation at this level. 3. Right popliteal fossa cyst measuring 2.4 x 1.8 cm. 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 Pt will be admitted to the [facility] forl treatment and further evaluation of?rhabdomyolysis, acute metabolic encephalopathy, UTI, and generalized weakness with IVF and IV antibiotics. Rhabdomyolysis Patient's creatinine kinase 1981 Likely secondary to recent falls Pt received IVF in ED Will place on Lactated Ringers Follow CPK Recent falls/leg weakness Pt with 10+ falls in the past 3-4 days Pt apparently went from ambulating on own to not being able to walk at all in 2 weeks Patient with 1+ knee and ankle reflexes bilaterally, positive straight leg test, abdominal pain radiating to back Will get MRI of lumbar spine to r/o cord compression PT consult Acute metabolic encephalopathy Likely secondary to UTI: UA positive for leukocyte esterase, RBC, WBC, 4+ bacteria Will treat with ceftriaxone, started on 12/17/2022 Hypokalemia Patient's potassium 2.7 at time of admission Supplemented with 40 mEq p.o. in ED Patient placed on continuous lactated Ringer's Follow BMP, supplement as necessary T9 compression deformity, age indeterminate Unclear etiology, pt with long hx of spinal arthritis, hx of spinal frax 2-3 yeras ago, possibly secondary to recent falls Lidocaine patch for pain management Question of proctitis CT found mild circumferential thickening the distal sigmoid colon and rectum with minimal pericolonic mesenteric stranding Is patient experiencing symptoms question carlos Abnormal CT of abdomen and pelvis findings CT found 2.9 cm left adrenal mass and numerous hypodense foci in the left kidney Chron's disease Not in acute exacerbation Continue Imodium Peripheral vascular disease Continue cilostazol Aqa-ohoexme-lwnwbnerx diabetes Sliding-scale insulin Continue glyburide, pioglitazone HLD Continue statin Hx of DVT Patient with significant history of multiple full-leg DVTs that needed to be surgically removed Continue Eliquis for now for DVT prophylaxis Consider discontinuing upon discharge d/t recent falls HTN Continue propranolol Nicotine dependence Patient smokes 1-2 packs per day Nicotine replacement therapy: Transderm patch 21 mg Mood disorder Continue bupropion DNR/DNI Attending:?Dr. Rey DVT Prophylaxis: On Eliquis Pt will require a hospitalization of at least two nights for treatment and further evaluation of?rhabdomyolysis, acute metabolic encephalopathy, UTI, and generalized weakness with IVF and IV antibiotics. Time Spent With Patient Time: Total time managing care of this patient today ____ minutes. Quality Stroke Does the patient have a stroke diagnosis?: No VTE Prior VTE?: No VTE Risk Level:: Medical - moderate - high VTE Device Contraindication: Treatment Not Indicated VTE Drug Contraindication: N/A - Med Ordered
--- NOTE | 2022-12-17 12:15 | PHA.MEDREC ---
Pharmacy Consult ? Medication Reconciliation Pharmacy has completed the medication reconciliation. Spoke to patient's daughter to confirm meds. Per patient's daughter, patient has scripts for propanolol 40mg BID and buproprion 150mg SR BID, however the patient only takes them daily because the patient will take them too close together .
--- NOTE | 2022-12-17 12:46 | PC.NURSE ---
per provider order - straight cath performed. 300ml of dark soto urine post catheter administration. pt tolerated catheter administration well. urine sample obtained and sent to lab by [facility].
[2022-12-17 12:56] LABS: Appearance Urine Cloudy; Color Urine Yellow; Glucose Urine UA Negative (Negative); Leukocyte Esterase Urine Small (1+) (Negative); Nitrite Urine Negative (Negative); PH 5.5 (5.0-9.0); Specific Gravity - Urine >= 1.030 (1.005-1.025); UMIC TRIGGER UACC YES; Urine Blood Moderate (2+) (Negative); Urine Ketones Negative (Negative); Urine Protein 30 (1+) mg/dL (Neg-Trace)
[2022-12-17 13:04] LABS: Amphetamine Screen Urine Not Detected (Not Detect); Barbiturates, Urine Not Detected (Not Detect); Benzodiazepines Screen Urine Not Detected (Not Detect); Cannabinoid Screen Urine Not Detected (Not Detect); Cocaine Screen Urine Not Detected (Not Detect); Fentanyl, urine Not Detected (Not Detect); Opiate Screen Urine POSITIVE (Not Detect); Phencyclidine Screen Urine Not Detected (Not Detect)
--- NOTE | 2022-12-17 13:13 | PC.NURSE ---
tech and phlebotomy in room drawing blood cultures so abx can be administered.
[2022-12-17 13:16] LABS: Bacteria Urine 4+ (None Seen); UACC Culture Trigger YES; WBC Urine 21-50 /HPF (0-5)
[2022-12-17] MEDS: cefTRIAXone sodium 1 GM in 0.9 % Sodium Chloride 50 ML IV (13:29)
--- NOTE | 2022-12-17 13:29 | PC.NURSE ---
medication administered per provider order.
[2022-12-17 13:34] LABS: Lactic Acid 1.1 mmol/L (0.5-2.0)
[2022-12-17] MEDS: Lactated Ringers 1,000 ML 100 ML IVCONT (14:14)
[2022-12-17] MEDS: Nicotine 21 MG PATCH.TD24 TRANSDERMA (14:14)
--- NOTE | 2022-12-17 14:17 | PC.NURSE ---
ivf and nicotine patch administered, PT at bedside doing eval.
--- NOTE | 2022-12-17 14:19 | PC.NURSE ---
attempted to call report, workers compensation legal secretary requested this nurse nicole text patients nurse, will do so and wait for the nurse to call the ed for report
--- NOTE | 2022-12-17 14:56 | PC.NURSE ---
report called to the floor
--- NOTE | 2022-12-17 15:05 | PC.NURSE ---
transport was notified to bring patient upstairs, ed charge nurse stated that the techs will be bringing patient upstairs as there is no transport to bring the patient
--- NOTE | 2022-12-17 15:12 | PC.NURSE ---
mri screening form this nurse did an mri screening form with the patients daughter as patient has baseline mild dementia, daughter requested the patient to have some type of sedative when going for the MRI as the patient is unable to lie flat- patient lies on the left side for comfort and is generally unable to lie on her back. HOspitalist Litzy Camejo was notified and an order for ativan was put in to give prior to the patient going to MRI and per tiger text an additional amount could be given once in MRI if needed and to notify him. This nurse did notify the nurse taking report of this and the ativan was not given in the ED as there wasn't a time slot yet for the patient to have the MRI performed.
[2022-12-17] MEDS: LORazepam 2 MG/ML VIAL 0.5 MG IVPUSH (16:29)
[2022-12-17] MEDS: Dextrose 50 % 25 GM/50 ML SYRINGE IVPUSH (18:03)
[2022-12-17 18:38] LABS: Glucose, Whole Blood 109 mg/dL (60-115)
[2022-12-17 18:38] LABS: Glucose, Whole Blood 84 mg/dL (60-115)
[2022-12-17 18:38] LABS: Glucose, Whole Blood 18 mg/dL (60-115)
[2022-12-17 18:38] LABS: Glucose, Whole Blood 22 mg/dL (60-115)
[2022-12-17 18:45] LABS: Glucose Random 139 mg/dL (60-115)
--- NOTE | 2022-12-17 19:21 | PC.NURSE ---
Nurse notified point of care reading results are 18. Asked nurse to retest point of care, results 22. Per policy 1 amp of 50% dextrose administer, and two container of orange juice administered.MD Rey made aware and stat random glucose order, per policy @ 1603 via tiger text. See documentation. Retested @1808 after administration see MAR documentation and poc was 84. Patient consumed 2 additional containers of orange juice and 50% of dinner. Retested poc at 1833 and results were 109. See documentation. Patient is resting comfortably on side, call ye in place and, bed alarm on, bed in lowest position. Frequent checks to make sure needs are met.
[2022-12-17 20:51] LABS: Glucose, Whole Blood 161 mg/dL (60-115)
[2022-12-17] MEDS: Apixaban 2.5 MG TABLET PO (21:43)
[2022-12-17] MEDS: cilostazoL 100 MG TABLET PO (21:43)
[2022-12-17] MEDS: Atorvastatin Calcium 40 MG TABLET PO (21:43)
[2022-12-18] MEDS: 0.9 % Sodium Chloride Flush 3 ML SYRINGE IVFLUSH ×3 (00:09→20:32)
[2022-12-18] MEDS: Lactated Ringers 1,000 ML 100 ML IVCONT ×3 (00:09→20:25)
[2022-12-18 03:29] VITALS: BP 148/68; PULSE 78; RESP 18; TEMP 36.6; O2SAT 95
[2022-12-18] MEDS: Acetaminophen 325 MG TABLET 650 MG PO ×4 (03:58→22:10)
[2022-12-18] MEDS: traMADoL HCL 50 MG TABLET PO ×2 (05:55→12:41)
[2022-12-18 06:36] LABS: Anion Gap 12 (12-20); Blood Urea Nitrogen 7 mg/dL (9-16); Calcium 8.1 mg/dL (8.4-10.2); Carbon Dioxide 25 mmol/L (22-29); Chloride 104 mmol/L (96-108); Creatinine Clr Calc Pharmacy 68.9; Estimated Glomerular Filt Rate > 60; Glucose Random 90 mg/dL (60-115); Potassium 3.3 mmol/L (3.3-5.1); Sodium 138 mmol/L (135-145)
[2022-12-18 07:08] LABS: Glucose, Whole Blood 80 mg/dL (60-115)
[2022-12-18 07:12] VITALS: BP 129/60; PULSE 81; RESP 18; TEMP 36.5; O2SAT 98
[2022-12-18 07:49] LABS: Hematocrit 32.3 % (42.0-52.0); Hemoglobin 10.3 g/dl (14.0-18.0); Mean Corpuscular HGB Conc 31.9 g/dl (31.0-36.0); Mean Corpuscular Hemoglobin 30.4 pg (27.0-33.0); Mean Corpuscular Volume 95.3 fL (80.0-98.0); Mean Platelet Volume 10.2 fL (9.4-12.4); Platelet Count 112 X10*3/uL (160-400); Red Blood Count 3.39 X10*6/uL (4.60-5.80); Red Cell Distribution Width 14.6 % (11.0-16.0); White Blood Count 6.7 X10*3/uL (4.8-10.8)
[2022-12-18] MEDS: Apixaban 2.5 MG TABLET PO ×2 (09:46→22:10)
[2022-12-18] MEDS: cilostazoL 100 MG TABLET PO ×2 (09:46→22:10)
[2022-12-18] MEDS: Pioglitazone HCL 30 MG TABLET PO (09:46)
[2022-12-18] MEDS: buPROPion HCl XL 150 MG TAB.ER.24H PO (09:46)
[2022-12-18] MEDS: Loperamide HCl 2 MG CAPSULE 4 MG PO ×2 (09:46→22:10)
[2022-12-18] MEDS: Nicotine 21 MG PATCH.TD24 TRANSDERMA (09:46)
[2022-12-18] MEDS: Propranolol HCL 40 MG TABLET PO (09:47)
[2022-12-18 11:11] LABS: Glucose, Whole Blood 97 mg/dL (60-115)
[2022-12-18 11:12] VITALS: BP 143/66; PULSE 81; RESP 18; TEMP 36.5; O2SAT 98
--- NOTE | 2022-12-18 14:22 | P.PNIM_ITS ---
Subjective Subjective Date of Service: 12/18/22 Interval History: Could not tolerate MRI. More alert this a.m.. Complaining of back pain. Mentation much clear this a.m. Review of Systems Denies chest pain Denies shortness of breath Denies nausea vomiting diarrhea Denies fever chills Physical Exam Vital Signs: Vital Signs: Last Vital Signs Temp 97.7 F 12/18/22 11:12 Pulse 81 12/18/22 11:12 Resp 18 12/18/22 11:12 BP 143/66 H 12/18/22 11:12 Pulse Ox 98 12/18/22 11:12 O2 Del Method Nasal Cannula 12/18/22 11:12 O2 Flow Rate 2 12/18/22 11:12 BMI result Body Mass Index 25.0 Const: Other: No acute distress. Uncomfortable in bed Resp: Other: Clear to auscultation bilaterally no rales rhonchi or wheezes Cardio: Other: No S4; positive S1-S2; no S3 murmurs rubs or gallops GI: Other: Soft nontender nondistended normoactive bowel sounds Extrem: Other: No edema bilaterally Objective Data Active Medications Acetaminophen (Acetaminophen 325 Mg Tablet) 650 mg PO Q6H PRN PRN Reason: Pain, Mild (Pain Scale 1-3) Last Admin: 12/18/22 09:46 Dose: 650 mg Documented By: PAT Apixaban (Apixaban 2.5 Mg Tablet) 2.5 mg PO BID [facility] Last Admin: 12/18/22 09:46 Dose: 2.5 mg Documented By: PAT Atorvastatin Calcium (Atorvastatin Calcium 40 Mg Tablet) 40 mg PO BEDTIME [facility] Last Admin: 12/17/22 21:43 Dose: 40 mg Documented By: FARHANA Bupropion HCl (Bupropion Hcl Xl 150 Mg Tab.Er.24h) 150 mg PO DAILY [facility] Last Admin: 12/18/22 09:46 Dose: 150 mg Documented By: PAT Cilostazol (Cilostazol 100 Mg Tablet) 100 mg PO BID [facility] Last Admin: 12/18/22 09:46 Dose: 100 mg Documented By: PAT Dexamethasone Sodium Phosphate (Dexamethasone Sod Phosphate 4 Mg/Ml Vial) 4 mg IVPUSH Q6H [facility] Dextrose (Dextrose 50 % 25 Gm/50 Ml Syringe) 25 gm IVPUSH Q15M PRN; Protocol PRN Reason: per Hypoglycemia Standing Ord. Last Admin: 12/17/22 18:03 Dose: 25 gm Documented By: FARHANA Glucose (Glucose Gel 15 Gm Gel..Gram.) 15 gm PO Q15M PRN; Protocol PRN Reason: per Hypoglycemia Standing Ord. Lactated Ringer's (Lr) 1,000 mls @ 100 mls/hr IVCONT .Q10H [facility] Last Admin: 12/18/22 10:20 Dose: 100 mls/hr Documented By: PAT Insulin Human Lispro (Insulin Lispro 100 Unit/Ml 3 Ml Vial) 0 unit SUBCUT QIDACHS [facility]; Protocol Last Admin: 12/18/22 11:19 Dose: Not Given Documented By: PAT Non-Admin Reason: No Insulin Coverage Comments: per sliding scale Loperamide HCl (Loperamide Hcl 2 Mg Capsule) 4 mg PO BID [facility] Last Admin: 12/18/22 09:46 Dose: 4 mg Documented By: PTA Nicotine (Nicotine 21 Mg Patch.Td24) 21 mg TRANSDERMA DAILY [facility] Last Admin: 12/18/22 09:46 Dose: 21 mg Documented By: PAT Pharmacy Consult (Consult Rx Perform Med Rec) 1 each MISCELLANE ONCE PRN PRN Reason: Consult order Pioglitazone HCl (Pioglitazone Hcl 30 Mg Tablet) 30 mg PO DAILY [facility] Last Admin: 12/18/22 09:46 Dose: 30 mg Documented By: PAT Propranolol HCl (Propranolol Hcl 40 Mg Tablet) 40 mg PO DAILY [facility]; Protocol Last Admin: 12/18/22 09:47 Dose: 40 mg Documented By: PAT Sodium Chloride (0.9 % Sodium Chloride Flush 3 Ml Syringe) 3 ml IVFLUSH QSHIFT [facility] Last Admin: 12/18/22 09:46 Dose: Not Given Documented By: PAT Non-Admin Reason: IV Running Tramadol HCl (Tramadol Hcl 50 Mg Tablet) 50 mg PO Q6H PRN PRN Reason: Pain, Severe (Pain Scale 7-10) Last Admin: 12/18/22 12:41 Dose: 50 mg Documented By: PAT Labs 12/18/22 05:55 12/18/22 05:55 Labs: Laboratory Results - last 24 hr 12/17/22 12/17/22 12/17/22 17:55 17:58 18:08 MCV MCH MCHC RDW Plt Count MPV Absolute Nucleated RBC Nucleated RBC % (auto) Anion Gap Estim Creat Clear Calc Estimated GFR POC Glucose 18 L* 22 L* 84 Random Glucose Calcium Total Creatine Kinase 12/17/22 12/17/22 12/17/22 18:09 18:33 20:48 MCV MCH MCHC RDW Plt Count MPV Absolute Nucleated RBC Nucleated RBC % (auto) Anion Gap Estim Creat Clear Calc Estimated GFR POC Glucose 109 161 H Random Glucose 139 H Calcium Total Creatine Kinase 12/18/22 12/18/22 12/18/22 05:55 05:55 07:05 MCV 95.3 MCH 30.4 MCHC 31.9 RDW 14.6 Plt Count 112 L MPV 10.2 Absolute Nucleated RBC 0.000 Nucleated RBC % (auto) 0.0 Anion Gap 12 Estim Creat Clear Calc 68.9 Estimated GFR > 60 POC Glucose 80 Random Glucose 90 Calcium 8.1 L Total Creatine Kinase 852 H 12/18/22 11:06 MCV MCH MCHC RDW Plt Count MPV Absolute Nucleated RBC Nucleated RBC % (auto) Anion Gap Estim Creat Clear Calc Estimated GFR POC Glucose 97 Random Glucose Calcium Total Creatine Kinase Microbiology Microbiology Results: Microbiology 12/17/22 Unknown Urine Culture - Preliminary Urine clean catch - Clean Catch Midstream Gram negative mary Assessment and Plan (1) Rhabdomyolysis: Status: Acute (2) Weakness: Status: Acute (3) UTI (urinary tract infection): Status: Acute Plan Pt is a 77-year-old male with a PMH significant for?with COPD, noninsulin dependent type 2 diabetes, 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 Pt will be admitted to the [facility] for[facility] treatment and further evaluation of?rhabdomyolysis, acute metabolic encephalopathy, UTI, and generalized weakness with IVF and IV antibiotics. 1.Rhabdomyolysis -continue Lactated Ringers 100 mL/hour -Follow CPK 2.Recent falls/leg weakness -unable to tolerate MRI -discussed with daughter; given history of spinal stenosis and multiple falls bilateral leg weakness may be related to nerve root impingement -will discuss appropriate imaging with Radiology -empiric Decadron 3Acute metabolic encephalopathy/UTI -markedly improved -continue ceftriaxone (2 ) -preliminary culture GNR 4.Hypokalemia -continue potassium supplements -follow renals/divalents DDNR/DNI Rahelquruben Requires ongoing hospitalization for workup of bilateral leg weakness and further and Time Spent With Patient Time: Total time managing care of this patient today ____ minutes. Quality Stroke Does the patient have a stroke diagnosis?: No VTE Prior VTE?: No VTE Risk Level:: Medical - moderate - high VTE Device Contraindication: Treatment Not Indicated VTE Drug Contraindication: N/A - Med Ordered
--- NOTE | 2022-12-18 15:04 | MHC.CM.PN ---
IMM 12/18/22 MALE 77 DX AMS GENERALIZED WEAKNESS FALLS. He lives with family members. He uses a walker for unsteady gait. He requires assist with ADLs. [facility] has been referred. A task was sent. Patients dtr has been providing assist with homemaking and ADLs, without pay. A copy of the pts HCP has been requested. DP home with new [facility]. Patient will arrange for a family member to provide transportation home.
[2022-12-18] MEDS: oxyCODONE HCl Immed Release 5 MG TABLET 10 MG PO ×2 (15:15→22:11)
[2022-12-18] MEDS: dexAMETHasone sod phosphate 4 MG/ML VIAL IVPUSH ×2 (15:16→20:32)
[2022-12-18] MEDS: Potassium Chloride Packet 20 MEQ PACKET 40 MEQ PO ×2 (15:16→22:09)
[2022-12-18 15:58] VITALS: BP 107/52; PULSE 50; RESP 16; TEMP 36.8; O2SAT 97
[2022-12-18 16:42] LABS: Glucose, Whole Blood 154 mg/dL (60-115)
[2022-12-18 18:50] VITALS: BP 145/60; PULSE 54; RESP 16; TEMP 35.8; O2SAT 98
[2022-12-18 20:28] LABS: Glucose, Whole Blood 200 mg/dL (60-115)
[2022-12-18] MEDS: Atorvastatin Calcium 40 MG TABLET PO (22:10)
[2022-12-19] VITALS (7 sets, daily range): BP systolic 114–152; BP diastolic 57–70; PULSE 57–76; RESP 16–20; TEMP 36–36.3; O2SAT 86–96; BMI 25.0
[2022-12-19] MEDS: dexAMETHasone sod phosphate 4 MG/ML VIAL IVPUSH ×4 (04:11→21:04)
[2022-12-19] MEDS: Lactated Ringers 1,000 ML 100 ML IVCONT (05:43)
[2022-12-19] MEDS: Acetaminophen 325 MG TABLET 650 MG PO (05:51)
[2022-12-19] MEDS: oxyCODONE HCl Immed Release 5 MG TABLET 10 MG PO ×2 (05:52→11:36)
[2022-12-19 07:03] LABS: MANUAL DIFF FLAG NO
[2022-12-19 07:10] LABS: Basophils Percent Auto 0.2 % (0-2); Eosinophils Percent Auto 0.2 % (0-4); Hemoglobin 10.2 g/dl (14.0-18.0); Imm Gran Abs Auto 0.03 X10*3/uL (0.00-0.03); Imm Gran Pct Auto 0.6 % (0.0-0.4); Lymphocytes Absolute Auto 0.4 X10*3/uL (1.2-4.9); Lymphocytes Percent Auto 7.6 % (20-40); Mean Corpuscular HGB Conc 31.9 g/dl (31.0-36.0); Mean Corpuscular Hemoglobin 29.9 pg (27.0-33.0); Mean Corpuscular Volume 93.8 fL (80.0-98.0); Mean Platelet Volume 10.5 fL (9.4-12.4); Monocytes Absolute Auto 0.1 X10*3/uL (0.1-1.2); Monocytes Percent Auto 1.9 % (2-11); Neutrophils Absolute Auto 4.7 x10*3/uL (2.0-8.3); Neutrophils Percent Auto 89.5 % (45-73); Platelet Count 126 X10*3/uL (160-400); Red Blood Count 3.41 X10*6/uL (4.60-5.80); Red Cell Distribution Width 14.3 % (11.0-16.0); White Blood Count 5.3 X10*3/uL (4.8-10.8)
[2022-12-19 07:32] LABS: Glucose, Whole Blood 193 mg/dL (60-115)
[2022-12-19 07:53] LABS: Alanine Aminotransferase 14 U/L (0-40); Albumin Level 2.4 g/dL (3.5-5.0); Alkaline Phosphatase 54 U/L (39-117); Anion Gap 15 (12-20); Aspartate Amino Transferase 26 U/L (5-37); Bilirubin Total 0.6 mg/dL (0.0-1.0); Blood Urea Nitrogen 10 mg/dL (9-16); Calcium 7.9 mg/dL (8.4-10.2); Carbon Dioxide 22 mmol/L (22-29); Chloride 105 mmol/L (96-108); Creatinine Clr Calc Pharmacy 64.8; Estimated Glomerular Filt Rate > 60; Glucose Fasting 204 mg/dL (60-99); Potassium 4.7 mmol/L (3.3-5.1); Sodium 137 mmol/L (135-145)
[2022-12-19] MEDS: Apixaban 2.5 MG TABLET PO ×2 (09:05→21:04)
[2022-12-19] MEDS: cilostazoL 100 MG TABLET PO ×2 (09:05→21:04)
[2022-12-19] MEDS: Insulin Lispro 100 UNIT/ML 3 ML VIAL SUBCUT ×4 (09:05→21:05)
[2022-12-19] MEDS: Loperamide HCl 2 MG CAPSULE 4 MG PO ×2 (09:05→21:04)
[2022-12-19] MEDS: Pioglitazone HCL 30 MG TABLET PO (09:05)
[2022-12-19] MEDS: buPROPion HCl XL 150 MG TAB.ER.24H PO (09:06)
[2022-12-19] MEDS: 0.9 % Sodium Chloride Flush 3 ML SYRINGE IVFLUSH ×2 (09:06→16:20)
[2022-12-19] MEDS: Nicotine 21 MG PATCH.TD24 TRANSDERMA (09:06)
[2022-12-19 11:15] LABS: Glucose, Whole Blood 252 mg/dL (60-115)
--- NOTE | 2022-12-19 13:01 | MHC.CM.PN ---
PT is recommending STR; CM will follow.
[2022-12-19 15:48] LABS: Glucose, Whole Blood 301 mg/dL (60-115)
[2022-12-19 19:49] LABS: Glucose, Whole Blood 313 mg/dL (60-115)
[2022-12-19] MEDS: Atorvastatin Calcium 40 MG TABLET PO (21:04)
[2022-12-20] MEDS: dexAMETHasone sod phosphate 4 MG/ML VIAL IVPUSH ×2 (03:08→08:39)
[2022-12-20 03:09] VITALS: BP 139/67; PULSE 71; RESP 16; TEMP 36.1; O2SAT 98
[2022-12-20] MEDS: oxyCODONE HCl Immed Release 5 MG TABLET 10 MG PO ×2 (06:12→12:36)
[2022-12-20] MEDS: Acetaminophen 325 MG TABLET 650 MG PO ×3 (06:12→21:08)
[2022-12-20 07:12] VITALS: BP 133/60; PULSE 69; RESP 18; TEMP 36.4; O2SAT 97
[2022-12-20 07:19] LABS: Glucose, Whole Blood 219 mg/dL (60-115)
[2022-12-20] MEDS: Loperamide HCl 2 MG CAPSULE 4 MG PO ×2 (08:38→21:08)
[2022-12-20] MEDS: buPROPion HCl XL 150 MG TAB.ER.24H PO (08:38)
[2022-12-20] MEDS: Propranolol HCL 40 MG TABLET PO (08:39)
[2022-12-20] MEDS: Pioglitazone HCL 30 MG TABLET PO (08:39)
[2022-12-20] MEDS: 0.9 % Sodium Chloride Flush 3 ML SYRINGE IVFLUSH ×3 (08:39→21:12)
[2022-12-20] MEDS: Apixaban 2.5 MG TABLET PO ×2 (08:39→21:08)
[2022-12-20] MEDS: cilostazoL 100 MG TABLET PO ×2 (08:39→21:08)
[2022-12-20] MEDS: Nicotine 21 MG PATCH.TD24 TRANSDERMA (08:40)
[2022-12-20] MEDS: Insulin Lispro 100 UNIT/ML 3 ML VIAL SUBCUT ×4 (08:40→21:08)
--- NOTE | 2022-12-20 09:57 | P.PNIM_ITS ---
Subjective Subjective Date of Service: 12/20/22 Interval History: f/u on weakness, fall, rhabdom clinically improving Physical Exam Vital Signs: Vital Signs: Last Vital Signs Temp 97.5 F 12/20/22 07:12 Pulse 69 12/20/22 07:12 Resp 18 12/20/22 07:12 BP 133/60 12/20/22 07:12 Pulse Ox 97 12/20/22 07:12 O2 Del Method Nasal Cannula 12/20/22 07:12 O2 Flow Rate 2 12/20/22 07:12 BMI result Body Mass Index 25.0 Const: Other: No acute distress. Uncomfortable in bed Resp: Other: Clear to auscultation bilaterally no rales rhonchi or wheezes Cardio: Other: No S4; positive S1-S2; no S3 murmurs rubs or gallops GI: Other: Soft nontender nondistended normoactive bowel sounds Extrem: Other: No edema bilaterally Objective Data Active Medications Acetaminophen (Acetaminophen 325 Mg Tablet) 650 mg PO Q6H PRN PRN Reason: Pain, Mild (Pain Scale 1-3) Last Admin: 12/20/22 06:12 Dose: 650 mg Documented By: PEDRO Apixaban (Apixaban 2.5 Mg Tablet) 2.5 mg PO BID [facility] Last Admin: 12/20/22 08:39 Dose: 2.5 mg Documented By: HARMAN Atorvastatin Calcium (Atorvastatin Calcium 40 Mg Tablet) 40 mg PO BEDTIME [facility] Last Admin: 12/19/22 21:04 Dose: 40 mg Documented By: PEDRO Bupropion HCl (Bupropion Hcl Xl 150 Mg Tab.Er.24h) 150 mg PO DAILY [facility] Last Admin: 12/20/22 08:38 Dose: 150 mg Documented By: HARMAN Cilostazol (Cilostazol 100 Mg Tablet) 100 mg PO BID [facility] Last Admin: 12/20/22 08:39 Dose: 100 mg Documented By: HARMAN Dexamethasone Sodium Phosphate (Dexamethasone Sod Phosphate 4 Mg/Ml Vial) 4 mg IVPUSH Q6H [facility] Last Admin: 12/20/22 08:39 Dose: 4 mg Documented By: HARMAN Dextrose (Dextrose 50 % 25 Gm/50 Ml Syringe) 25 gm IVPUSH Q15M PRN; Protocol PRN Reason: per Hypoglycemia Standing Ord. Last Admin: 12/17/22 18:03 Dose: 25 gm Documented By: FARHANA Glucose (Glucose Gel 15 Gm Gel..Gram.) 15 gm PO Q15M PRN; Protocol PRN Reason: per Hypoglycemia Standing Ord. Insulin Human Lispro (Insulin Lispro 100 Unit/Ml 3 Ml Vial) 0 unit SUBCUT QIDACHS [facility]; Protocol Last Admin: 12/20/22 08:40 Dose: 4 unit Documented By: HARMAN Loperamide HCl (Loperamide Hcl 2 Mg Capsule) 4 mg PO BID [facility] Last Admin: 12/20/22 08:38 Dose: 4 mg Documented By: HARMAN Nicotine (Nicotine 21 Mg Patch.Td24) 21 mg TRANSDERMA DAILY [facility] Last Admin: 12/20/22 08:40 Dose: 21 mg Documented By: HARMAN Oxycodone HCl (Oxycodone Hcl Immed Release 5 Mg Tablet) 10 mg PO Q4H PRN PRN Reason: Pain, Moderate(Pain Scale 4-6) Last Admin: 12/20/22 06:12 Dose: 10 mg Documented By: PEDRO Pharmacy Consult (Consult Rx Perform Med Rec) 1 each MISCELLANE ONCE PRN PRN Reason: Consult order Pioglitazone HCl (Pioglitazone Hcl 30 Mg Tablet) 30 mg PO DAILY [facility] Last Admin: 12/20/22 08:39 Dose: 30 mg Documented By: HARMAN Propranolol HCl (Propranolol Hcl 40 Mg Tablet) 40 mg PO DAILY [facility]; Protocol Last Admin: 12/20/22 08:39 Dose: 40 mg Documented By: HARMAN Sodium Chloride (0.9 % Sodium Chloride Flush 3 Ml Syringe) 3 ml IVFLUSH [facility] Last Admin: 12/20/22 08:39 Dose: 3 ml Documented By: HARMAN Tramadol HCl (Tramadol Hcl 50 Mg Tablet) 50 mg PO Q6H PRN PRN Reason: Pain, Severe (Pain Scale 7-10) Last Admin: 12/18/22 12:41 Dose: 50 mg Documented By: PAT Labs 12/19/22 06:06 12/19/22 06:06 Labs: Laboratory Results - last 24 hr 12/19/22 12/19/22 12/19/22 11:11 15:44 19:35 POC Glucose 252 H 301 H 313 H 12/20/22 07:14 POC Glucose 219 H Microbiology Microbiology Results: Microbiology 12/17/22 13:16 Blood Culture - Preliminary Blood - Venous No growth after 48 hours. 12/17/22 13:17 Blood Culture - Preliminary Blood - Venous No growth after 48 hours. 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 Pt will be admitted to the [facility] forl treatment and further evaluation of?rhabdomyolysis, acute metabolic encephalopathy, UTI, and generalized weakness with IVF and IV antibiotics. 1.Rhabdomyolysis, cpk is trending down, less 100, dc IVF 2.Recent falls/leg weakness -unable to tolerate MRI, given history of spinal stenosis and multiple falls bilateral leg weakness may be related to nerve root impingement -empiric Decadron, 4 qid stopp, and prednisone nancy 3Acute metabolic encephalopathy/UTI -markedly improved -continue ceftriaxone (4 ) -preliminary culture GNR 4.Hypokalemia-corrected and resolved DDNR/DNI Eliquis Requires ongoing hospitalization for workup of bilateral leg weakness and further and Time Spent With Patient Time: Total time managing care of this patient today ____ minutes. Quality Stroke Does the patient have a stroke diagnosis?: No VTE Prior VTE?: No VTE Risk Level:: Medical - moderate - high VTE Device Contraindication: Treatment Not Indicated VTE Drug Contraindication: N/A - Med Ordered
[2022-12-20 11:20] VITALS: BP 128/68; PULSE 62; RESP 20; TEMP 36.4; O2SAT 96
[2022-12-20 11:39] LABS: Glucose, Whole Blood 330 mg/dL (60-115)
--- NOTE | 2022-12-20 11:51 | MHC.CM.PN ---
Per ROUNDS discussion, Patient is medically cleared for dc to SNF/STR today. Patient will dc to his first choice SNF/[facility] today at 4 PM, via [facility]. Last IMM addressed on 12/18/2022.
--- NOTE | 2022-12-20 12:17 | P.CDIM_ITS ---
PROVIDER RESPONSE TEXT: To clarify, the appropriate diagnosis supported by the clinical indicators: No complications of DM QUERY TEXT: PHYSICIAN'S DOCUMENTATION REQUEST Date of Query: 12/20/2022 10:15 AM EDT Patient Name: Gonzales De La Cruz Admit Date: 12/17/2022 Dear Esteban Ware, A review of the medical record indicates additional documentation may be needed. Please review below and update the documentation accordingly. Clinical Indicators: Per ER Physician Documentation 12/17/22: On EMS arrival patient was found to be hypoglycemic at 42 and was given a tube of glucose a D 10, glucose increased to 150. Per H&P 12/17/22: PMH noninsulin dependent type 2 diabetes POC glucose on 12/17/22: 18, 22, 84 POC glucose on 12/19/22: 301, 313 Please clarify the following regarding the Complications of Diabetes Mellitus (DM): Please describe any known complications (Such as Hypoglycemia, Hyperglycemia No complications of DM Other (explain)Clinically unable to determine (explain)Thank you, Stephanie Best RN Use of terms such as suspected, likely, concern for, or probable (associated with a specific diagnosi s that is being evaluated, monitored, or treated as if it exists) are acceptable and can be coded in the inpatient se tting, when documented at the time of discharge. Please use your independent medical judgment in providing your response. THIS QUERY IS PART OF THE PERMANENT MEDICAL RECORD
--- NOTE | 2022-12-20 12:19 | P.DS_ITS ---
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 Patient is alert and oriented to self only and thus incapable of providing accurate HPI.? HPI obtained from phone call her daughter and chart review.? Patient lives with daughter who notes patient was almost completely independent except for taking baths up until 2 weeks ago when he started to develop leg weakness and unsteadiness on his feet.? Patient began using a cane occasionally during the day but severely deteriorated over the weekend and began using a walker on Monday of this week.? For the past couple of days patient apparently has barely been able to ambulate on his own and has had 10+ falls in the house. Pt and daughter deny headstrike or LOC. Daughter also notes patient has been complaining of bilateral calf pain, and patient has had some increased confusion over the past couple of days. Of note, patient has a history of Crohn's disease but is intolerant of most medications, only takes Imodium b.i.d. In the ED patient's BP little soft at 128/59. Labs were significant for leukoc ytosis of 11.9, stable H&H of 12.6/39 point, hypokalemia of 2.7, CPK of 1981. Troponins negative.? Renal function baseline. UA positive for UTI. CT of chest showed moderate emphysema with small left-sided effusion with overlying airspace disease, likely atelectasis.? Also showed likely pulmonary arterial hypertension.? CT of abdomen and pelvis with numerous findings: a 2.9 cm left adrenal mass that is nonspecific and could be further evaluated with outpatient nonemergent MRI; numerous hypodense foci of left kidney; diverticulosis without evidence of diverticulitis; mild circumferential thickening in the distal sigmoid colon and rectum with minimal pericolonic mesenteric stranding possibly reflective of proctitis; and T9 compression deformity of indeterminate age. CT?of head found no acute intracranial pathology.? CT of cervical spine found no fractures or dislocations.? Venous duplex of lower extremities showed no DVT demonstrated bilaterally, the right peroneal vein not well visualized.? Did find right popliteal fossa cyst measuring 2.4 x 1.8 cm. EKG demonstrated sinus tachycardia of [address] and T-wave abnormalities. Pt was treated with potassium chloride, morphine, IVF, and lidocaine patch. Pt will be admitted to the [facility] forl treatment and further evaluation of?rhabdomyolysis, acute metabolic encephalopathy, UTI, and generalized weakness with IVF and IV antibiotics. Time Spent with Patient Time attestation: Total time managing care of this patient today ____ minutes. Discharge coordination time: Greater than 30 minutes Quality: Safe Use of Opioids Does Pt have an Active Cancer Diagnosis on the Problem List?: No Quality: Stroke Does the patient have a stroke diagnosis?: No Physical Exam Vital Signs: Vital Signs: Last Vital Signs Temp 97.6 F 12/20/22 11:20 Pulse 62 12/20/22 11:20 Resp 20 12/20/22 11:20 BP 128/68 12/20/22 11:20 Pulse Ox 96 12/20/22 11:20 O2 Del Method Nasal Cannula 12/20/22 11:20 O2 Flow Rate 2 12/20/22 11:20 BMI result Body Mass Index 25.0 DS: Data Data Completed and Pending Labs on day of discharge: Laboratory Results - last 24 hr 12/19/22 12/19/22 12/20/22 15:44 19:35 07:14 POC Glucose 301 H 313 H 219 H 12/20/22 11:35 POC Glucose 330 H Preliminary micro results at discharge 12/17/22 13:16 Blood Culture - Preliminary Blood - Venous No growth after 48 hours. 12/17/22 13:17 Blood Culture - Preliminary Blood - Venous No growth after 48 hours. Discharge Plan Discharge Date/Time: 12/27/22 16:05 Patient Disposition: Discharge Diagnosis: metabolic encephalopathy Referrals: [facility] [Outside] - 1 Week Physician,Unknown J [Primary Care Provider] - 1 Week Discharge Medications: No Action atorvastatin 40 mg tablet 40 mg PO BEDTIME cilostazol 100 mg tablet 100 mg PO BID bupropion HCl 150 mg tablet sustained-release 12 hr 150 mg PO DAILY loperamide [Imodium] 2 mg Capsule 4 mg PO BID glyburide 5 mg tablet 10 mg PO BID propranolol 40 mg tablet 40 mg PO DAILY pioglitazone 30 mg tablet 30 mg PO DAILY Guaifen PE 25-800 mg Tablet Extended Release 12 Hr 1 tab PO DAILY Eliquis 2.5 mg tablet 2.5 mg PO BID Activity on Discharge: As tolerated Stand Alone Forms: Patient Portal Discharge page Discharge Date/Time: 12/27/22 16:05
[2022-12-20] MEDS: Morphine Sulfate 4 MG/ML CARTRIDGE 2 MG IVPUSH (14:34)
--- NOTE | 2022-12-20 14:37 | MHC.CM.PN ---
Per , anticipated dc for today to [facility] is canceled r/t s/s of pain. Transportation has been canceled and Daughter/HCP/Radha @ [phone] and SNF has been notified of the change in plan. CM will follow.
[2022-12-20 16:00] VITALS: BP 131/60; PULSE 60; RESP 20; TEMP 35.9; O2SAT 98
[2022-12-20 16:24] LABS: Glucose, Whole Blood 293 mg/dL (60-115)
[2022-12-20 20:00] VITALS: BP 155/66; PULSE 54; RESP 20; TEMP 35.9; O2SAT 97
[2022-12-20 20:09] LABS: Glucose, Whole Blood 211 mg/dL (60-115)
[2022-12-20] MEDS: Atorvastatin Calcium 40 MG TABLET PO (21:08)
[2022-12-20 23:42] VITALS: BP 155/70; PULSE 61; RESP 18; TEMP 36.2; O2SAT 99
[2022-12-21] MEDS: oxyCODONE HCl Immed Release 5 MG TABLET 10 MG PO ×3 (01:43→15:48)
[2022-12-21 03:46] VITALS: BP 155/72; PULSE 72; RESP 18; TEMP 36.6; O2SAT 93
[2022-12-21 07:35] VITALS: BP 161/73; PULSE 65; RESP 16; TEMP 36.2; O2SAT 92
[2022-12-21 07:54] LABS: Glucose, Whole Blood 146 mg/dL (60-115)
--- NOTE | 2022-12-21 08:59 | HO.PM.IMPN ---
Subjective Subjective Date of Service: 12/21/22 Interval History: f/u on weakness, fall, rhabdom c/o singnificant back pain of 10/10 Physical Exam Vital Signs: Vital Signs: Last Vital Signs Temp 97.2 F 12/21/22 07:35 Pulse 65 12/21/22 07:35 Resp 16 12/21/22 07:35 BP 161/73 H 12/21/22 07:35 Pulse Ox 92 12/21/22 07:35 O2 Del Method Nasal Cannula 12/21/22 07:35 O2 Flow Rate 2 12/21/22 07:35 BMI result Body Mass Index 25.0 Const: Other: No acute distress. Uncomfortable in bed Resp: Other: Clear to auscultation bilaterally no rales rhonchi or wheezes Cardio: Other: No S4; positive S1-S2; no S3 murmurs rubs or gallops GI: Other: Soft nontender nondistended normoactive bowel sounds Extrem: Other: No edema bilaterally Objective Data Active Medications Acetaminophen (Acetaminophen 325 Mg Tablet) 650 mg PO Q6H PRN PRN Reason: Pain, Mild (Pain Scale 1-3) Last Admin: 12/20/22 21:08 Dose: 650 mg Documented By: MIGUEL Apixaban (Apixaban 2.5 Mg Tablet) 2.5 mg PO BID [facility] Last Admin: 12/20/22 21:08 Dose: 2.5 mg Documented By: MIGUEL Atorvastatin Calcium (Atorvastatin Calcium 40 Mg Tablet) 40 mg PO BEDTIME [facility] Last Admin: 12/20/22 21:08 Dose: 40 mg Documented By: MIGUEL Bupropion HCl (Bupropion Hcl Xl 150 Mg Tab.Er.24h) 150 mg PO DAILY [facility] Last Admin: 12/20/22 08:38 Dose: 150 mg Documented By: HARMAN Cilostazol (Cilostazol 100 Mg Tablet) 100 mg PO BID [facility] Last Admin: 12/20/22 21:08 Dose: 100 mg Documented By: MIGUEL Dextrose (Dextrose 50 % 25 Gm/50 Ml Syringe) 25 gm IVPUSH Q15M PRN; Protocol PRN Reason: per Hypoglycemia Standing Ord. Last Admin: 12/17/22 18:03 Dose: 25 gm Documented By: FARHANA Glucose (Glucose Gel 15 Gm Gel..Gram.) 15 gm PO Q15M PRN; Protocol PRN Reason: per Hypoglycemia Standing Ord. Insulin Human Lispro (Insulin Lispro 100 Unit/Ml 3 Ml Vial) 0 unit SUBCUT QIDACHS [facility]; Protocol Last Admin: 12/21/22 08:41 Dose: Not Given Documented By: ADAM Non-Admin Reason: No Insulin Coverage Loperamide HCl (Loperamide Hcl 2 Mg Capsule) 4 mg PO BID [facility] Last Admin: 12/20/22 21:08 Dose: 4 mg Documented By: MIGUEL Morphine Sulfate (Morphine Sulfate 4 Mg/Ml Cartridge) 2 mg IVPUSH Q4H PRN; Protocol PRN Reason: Pain, Severe (Pain Scale 7-10) Last Admin: 12/20/22 14:34 Dose: 2 mg Documented By: HARMAN Nicotine (Nicotine 21 Mg Patch.Td24) 21 mg TRANSDERMA DAILY [facility] Last Admin: 12/20/22 08:40 Dose: 21 mg Documented By: HARMAN Oxycodone HCl (Oxycodone Hcl Immed Release 5 Mg Tablet) 10 mg PO Q4H PRN PRN Reason: Pain, Moderate(Pain Scale 4-6) Last Admin: 12/21/22 01:43 Dose: 10 mg Documented By: MIGUEL Oxycodone HCl (Oxycodone Hcl Er 10 Mg Tab.Er.12h) 10 mg PO BID [facility] Pharmacy Consult (Consult Rx Perform Med Rec) 1 each MISCELLANE ONCE PRN PRN Reason: Consult order Pioglitazone HCl (Pioglitazone Hcl 30 Mg Tablet) 30 mg PO DAILY [facility] Last Admin: 12/20/22 08:39 Dose: 30 mg Documented By: HARMAN Propranolol HCl (Propranolol Hcl 40 Mg Tablet) 40 mg PO DAILY [facility]; Protocol Last Admin: 12/20/22 08:39 Dose: 40 mg Documented By: HARMAN Sodium Chloride (0.9 % Sodium Chloride Flush 3 Ml Syringe) 3 ml IVFLUSH QSHIFT [facility] Last Admin: 12/20/22 21:12 Dose: 3 ml Documented By: MIGUEL Tramadol HCl (Tramadol Hcl 50 Mg Tablet) 50 mg PO Q6H PRN PRN Reason: Pain, Severe (Pain Scale 7-10) Last Admin: 12/18/22 12:41 Dose: 50 mg Documented By: PAT Labs 12/19/22 06:06 12/19/22 06:06 Labs: Laboratory Results - last 24 hr 12/20/22 12/20/22 12/20/22 11:35 15:55 20:04 POC Glucose 330 H 293 H 211 H 12/21/22 07:38 POC Glucose 146 H Assessment and Plan (1) UTI (urinary tract infection): Status: Acute (2) Frequent falls: Status: Acute Plan Pt is a 77-year-old male with a PMH significant for?with COPD, noninsulin dependent type 2 diabetes, 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 Pt will be admitted to the [facility] forl treatment and further evaluation of?rhabdomyolysis, acute metabolic encephalopathy, UTI, and generalized weakness with IVF and IV antibiotics. 1.Rhabdomyolysis, cpk is trending down, less 100, dc IVF 2.Recent falls/leg weakness -unable to tolerate MRI, given history of spinal stenosis and multiple falls bilateral leg weakness may be related to nerve root impingement 3. Back pain--not able to tolerate MRI, get CT of thoracic spine, lumbar spine.. Oxycodone and Oxycontin -empiric Decadron, 4 qid stopp, and prednisone nancy 3Acute metabolic encephalopathy/UTI -markedly improved -continue ceftriaxone (4 ) -preliminary culture GNR 4.Hypokalemia-corrected and resolved DDNR/DNI Andrew Requires ongoing hospitalization for workup of bilateral leg weakness and further and Time Spent With Patient Time: Total time managing care of this patient today ____ minutes. Quality Stroke Does the patient have a stroke diagnosis?: No VTE Prior VTE?: No VTE Risk Level:: Medical - moderate - high VTE Device Contraindication: Treatment Not Indicated VTE Drug Contraindication: N/A - Med Ordered
[2022-12-21] MEDS: Nicotine 21 MG PATCH.TD24 TRANSDERMA (09:48)
[2022-12-21] MEDS: oxyCODONE HCl ER 10 MG TAB.ER.12H PO ×2 (09:49→21:24)
[2022-12-21] MEDS: cilostazoL 100 MG TABLET PO ×2 (09:49→21:24)
[2022-12-21] MEDS: Propranolol HCL 40 MG TABLET PO (09:50)
[2022-12-21] MEDS: Pioglitazone HCL 30 MG TABLET PO (09:50)
[2022-12-21] MEDS: Apixaban 2.5 MG TABLET PO ×2 (09:50→21:24)
[2022-12-21] MEDS: 0.9 % Sodium Chloride Flush 3 ML SYRINGE IVFLUSH ×3 (09:50→21:24)
[2022-12-21] MEDS: buPROPion HCl XL 150 MG TAB.ER.24H PO (09:50)
[2022-12-21] MEDS: Loperamide HCl 2 MG CAPSULE 4 MG PO ×2 (09:50→21:24)
--- NOTE | 2022-12-21 10:56 | MHC.CLN ---
F/U VARIABLE PO DIET RX: 2000DM-APPROPRIATE RECOMMEND ADDING ENSURE MAX BID TO PROMOTE WOUND HEALING SUPP TO PROVIDE 300KCLAS, 60G PROTEIN MONITOR PO INTAKE CLOSELY
[2022-12-21 11:07] VITALS: BP 159/67; PULSE 73; RESP 16; TEMP 36.4; O2SAT 94
[2022-12-21 11:35] LABS: Glucose, Whole Blood 183 mg/dL (60-115)
[2022-12-21] MEDS: Insulin Lispro 100 UNIT/ML 3 ML VIAL SUBCUT (12:33)
[2022-12-21 15:19] VITALS: BP 165/80; PULSE 66; RESP 18; TEMP 36.1; O2SAT 94
[2022-12-21 15:24] LABS: Glucose, Whole Blood 151 mg/dL (60-115)
--- NOTE | 2022-12-21 16:31 | PM.EVENT ---
Event Note Date of Service: 12/22/22 Event Note: pt with abdominal distention, xray requested, he will not do it because it will hurt to move him and he cannot lay flat, he's probaly constipated from narc, will attempt a CT and bowel regimen and observe Time Spent With Patient Time: Total time managing care of this patient today ____ minutes.
[2022-12-21 18:31] LABS: CDiff Gene PCR NEGATIVE (Negative)
[2022-12-21 20:00] VITALS: BP 150/57; PULSE 89; RESP 18; TEMP 37.1; O2SAT 97
[2022-12-21 20:25] LABS: Glucose, Whole Blood 160 mg/dL (60-115)
[2022-12-21] MEDS: Atorvastatin Calcium 40 MG TABLET PO (21:24)
[2022-12-21] MEDS: Docusate Sodium 100 MG CAPSULE PO (21:24)
[2022-12-21 23:21] VITALS: BP 140/72; PULSE 87; RESP 18; TEMP 36.1; O2SAT 93
[2022-12-22 03:56] VITALS: BP 177/76; PULSE 81; RESP 18; TEMP 36.1; O2SAT 94
[2022-12-22 07:08] LABS: Glucose, Whole Blood 146 mg/dL (60-115)
[2022-12-22 07:26] VITALS: BP 148/69; PULSE 92; RESP 20; TEMP 36.3; O2SAT 94
[2022-12-22] MEDS: oxyCODONE HCl ER 10 MG TAB.ER.12H PO ×2 (08:31→20:46)
[2022-12-22] MEDS: cilostazoL 100 MG TABLET PO ×2 (08:31→20:45)
[2022-12-22] MEDS: Pioglitazone HCL 30 MG TABLET PO (08:31)
[2022-12-22] MEDS: Apixaban 2.5 MG TABLET PO ×2 (08:32→20:45)
[2022-12-22] MEDS: Loperamide HCl 2 MG CAPSULE 4 MG PO ×2 (08:32→20:45)
[2022-12-22] MEDS: Propranolol HCL 40 MG TABLET PO (08:32)
[2022-12-22] MEDS: Nicotine 21 MG PATCH.TD24 TRANSDERMA (08:32)
[2022-12-22] MEDS: Docusate Sodium 100 MG CAPSULE PO ×2 (08:32→20:45)
[2022-12-22] MEDS: buPROPion HCl XL 150 MG TAB.ER.24H PO (08:32)
--- NOTE | 2022-12-22 09:16 | P.PNIM_ITS ---
Subjective Subjective Date of Service: 12/22/22 Physical Exam Vital Signs: Vital Signs: Last Vital Signs Temp 97.4 F 12/22/22 07:26 Pulse 92 12/22/22 07:26 Resp 20 12/22/22 07:26 BP 148/69 H 12/22/22 07:26 Pulse Ox 94 12/22/22 07:26 O2 Del Method Oxymask 12/22/22 07:26 O2 Flow Rate 4 12/22/22 07:26 BMI result Body Mass Index 25.0 Objective Data Active Medications Acetaminophen (Acetaminophen 325 Mg Tablet) 650 mg PO Q6H PRN PRN Reason: Pain, Mild (Pain Scale 1-3) Last Admin: 12/20/22 21:08 Dose: 650 mg Documented By: MIGUEL Apixaban (Apixaban 2.5 Mg Tablet) 2.5 mg PO BID [facility] Last Admin: 12/22/22 08:32 Dose: 2.5 mg Documented By: NORMA Atorvastatin Calcium (Atorvastatin Calcium 40 Mg Tablet) 40 mg PO BEDTIME [facility] Last Admin: 12/21/22 21:24 Dose: 40 mg Documented By: MIGUEL Bupropion HCl (Bupropion Hcl Xl 150 Mg Tab.Er.24h) 150 mg PO DAILY [facility] Last Admin: 12/22/22 08:32 Dose: 150 mg Documented By: NORMA Cilostazol (Cilostazol 100 Mg Tablet) 100 mg PO BID [facility] Last Admin: 12/22/22 08:31 Dose: 100 mg Documented By: NORMA Dextrose (Dextrose 50 % 25 Gm/50 Ml Syringe) 25 gm IVPUSH Q15M PRN; Protocol PRN Reason: per Hypoglycemia Standing Ord. Last Admin: 12/17/22 18:03 Dose: 25 gm Documented By: FARHANA Docusate Sodium (Docusate Sodium 100 Mg Capsule) 100 mg PO BID [facility] Last Admin: 12/22/22 08:32 Dose: 100 mg Documented By: NORMA Glucose (Glucose Gel 15 Gm Gel..Gram.) 15 gm PO Q15M PRN; Protocol PRN Reason: per Hypoglycemia Standing Ord. Insulin Human Lispro (Insulin Lispro 100 Unit/Ml 3 Ml Vial) 0 unit SUBCUT QIDACHS [facility]; Protocol Last Admin: 12/22/22 07:38 Dose: Not Given Documented By: NORMA Non-Admin Reason: See Note Loperamide HCl (Loperamide Hcl 2 Mg Capsule) 4 mg PO BID [facility] Last Admin: 12/22/22 08:32 Dose: 4 mg Documented By: NORMA Morphine Sulfate (Morphine Sulfate 4 Mg/Ml Cartridge) 2 mg IVPUSH Q4H PRN; Protocol PRN Reason: Pain, Severe (Pain Scale 7-10) Last Admin: 12/20/22 14:34 Dose: 2 mg Documented By: HARMAN Nicotine (Nicotine 21 Mg Patch.Td24) 21 mg TRANSDERMA DAILY [facility] Last Admin: 12/22/22 08:32 Dose: 21 mg Documented By: NORMA Oxycodone HCl (Oxycodone Hcl Immed Release 5 Mg Tablet) 10 mg PO Q4H PRN PRN Reason: Pain, Moderate(Pain Scale 4-6) Last Admin: 12/21/22 15:48 Dose: 10 mg Documented By: ADAM Oxycodone HCl (Oxycodone Hcl Er 10 Mg Tab.Er.12h) 10 mg PO BID [facility] Last Admin: 12/22/22 08:31 Dose: 10 mg Documented By: NORMA Pharmacy Consult (Consult Rx Perform Med Rec) 1 each MISCELLANE ONCE PRN PRN Reason: Consult order Pioglitazone HCl (Pioglitazone Hcl 30 Mg Tablet) 30 mg PO DAILY [facility] Last Admin: 12/22/22 08:31 Dose: 30 mg Documented By: NORMA Polyethylene Glycol (Polyethylene Glycol 3350 17 Gm Powd.Pack) 17 gm PO DAILY PRN PRN Reason: Constipation Propranolol HCl (Propranolol Hcl 40 Mg Tablet) 40 mg PO DAILY [facility]; Protocol Last Admin: 12/22/22 08:32 Dose: 40 mg Documented By: NORMA Sodium Chloride (0.9 % Sodium Chloride Flush 3 Ml Syringe) [facility] Last Admin: 12/22/22 07:34 Dose: Not Given Documented By: NORMA Non-Admin Reason: See Note Tramadol HCl (Tramadol Hcl 50 Mg Tablet) 50 mg PO Q6H PRN PRN Reason: Pain, Severe (Pain Scale 7-10) Last Admin: 12/18/22 12:41 Dose: 50 mg Documented By: PAT Labs 12/19/22 06:06 12/19/22 06:06 Labs: Laboratory Results - last 24 hr 12/21/22 12/21/22 12/21/22 11:15 15:15 16:52 POC Glucose 183 H 151 H C. difficile Tox B Gene NEGATIVE 12/21/22 12/22/22 20:21 06:52 POC Glucose 160 H 146 H C. 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 Pt will be admitted to [facility] forl treatment and further evaluation of?rhabdomyolysis, acute metabolic encephalopathy, UTI, and generalized weakness with IVF and IV antibiotics. 1.Rhabdomyolysis, cpk is trending down, less 100, dc IVF -unable to tolerate MRI, given history of spinal stenosis and multiple falls bilateral leg weakness may be related to nerve root impingement 3. Back pain--not able to tolerate MRI, get CT of thoracic spine, lumbar spine show T11 compression fracture. Oxycodone and Oxycontin, will discuss further management option with daughter was on decadron but stopped 3Acute metabolic encephalopathy/UTI, culture = e coli -markedly improved -ceftriaxone to ceftin 4.Hypokalemia-corrected and resolved 5. Abdominal distention --improved following bowel movment, cdif negative DDNR/DNI Eliquis Requires ongoing hospitalization for workup of bilateral leg weakness and further and Time Spent With Patient Time: Total time managing care of this patient today ____ minutes. Quality Stroke Does the patient have a stroke diagnosis?: No VTE Prior VTE?: No VTE Risk Level:: Medical - moderate - high VTE Device Contraindication: Treatment Not Indicated VTE Drug Contraindication: N/A - Med Ordered
[2022-12-22 11:08] LABS: Glucose, Whole Blood 172 mg/dL (60-115)
[2022-12-22] MEDS: Insulin Lispro 100 UNIT/ML 3 ML VIAL SUBCUT ×3 (11:28→20:44)
[2022-12-22 11:38] VITALS: BP 136/74; PULSE 90; RESP 18; TEMP 36.6; O2SAT 96
[2022-12-22 14:56] VITALS: BP 140/56; PULSE 66; RESP 20; TEMP 36.7; O2SAT 95
[2022-12-22 16:14] LABS: Glucose, Whole Blood 188 mg/dL (60-115)
[2022-12-22 19:07] VITALS: BP 136/56; PULSE 80; RESP 20; TEMP 36.3; O2SAT 94
[2022-12-22 20:06] LABS: Glucose, Whole Blood 240 mg/dL (60-115)
[2022-12-22] MEDS: Atorvastatin Calcium 40 MG TABLET PO (20:45)
[2022-12-22 23:16] VITALS: BP 126/56; PULSE 76; RESP 18; TEMP 36.4; O2SAT 96
[2022-12-22] MEDS: 0.9 % Sodium Chloride Flush 3 ML SYRINGE IVFLUSH (23:47)
[2022-12-22] MEDS: oxyCODONE HCl Immed Release 5 MG TABLET 10 MG PO (23:48)
[2022-12-23] VITALS (8 sets, daily range): BP systolic 130–156; BP diastolic 50–69; PULSE 69–90; RESP 13–20; TEMP 35.9–36.7; O2SAT 92–100
[2022-12-23] MEDS: oxyCODONE HCl Immed Release 5 MG TABLET 10 MG PO (03:47)
[2022-12-23] MEDS: oxyCODONE HCl ER 10 MG TAB.ER.12H PO (06:24)
[2022-12-23 07:25] LABS: Glucose, Whole Blood 160 mg/dL (60-115)
[2022-12-23] MEDS: Morphine Sulfate 4 MG/ML CARTRIDGE 2 MG IVPUSH (09:06)
[2022-12-23] MEDS: 0.9 % Sodium Chloride Flush 3 ML SYRINGE IVFLUSH ×3 (09:08→23:41)
[2022-12-23] MEDS: cilostazoL 100 MG TABLET PO ×2 (09:08→09:09)
[2022-12-23] MEDS: buPROPion HCl XL 150 MG TAB.ER.24H PO (09:09)
[2022-12-23] MEDS: Apixaban 2.5 MG TABLET PO ×2 (09:09→21:58)
[2022-12-23] MEDS: Propranolol HCL 40 MG TABLET PO (09:09)
[2022-12-23] MEDS: Loperamide HCl 2 MG CAPSULE 4 MG PO (09:09)
[2022-12-23] MEDS: Pioglitazone HCL 30 MG TABLET PO (09:15)
[2022-12-23] MEDS: Nicotine 21 MG PATCH.TD24 TRANSDERMA (09:20)
--- NOTE | 2022-12-23 10:01 | MHC.CLN ---
F/U CONTINUES WITH VARIABLE PO DIET RX: 2000DM-APPROPRIATE PT RECEIVING ENSURE MAX BID TO PROMOTE WOUND HEALING SUPP TO PROVIDE 300KCLAS, 60G PROTEIN MONITOR PO INTAKE CLOSELY AND ENCOURAGE SUPPLEMENT
--- NOTE | 2022-12-23 10:46 | HO.PM.IMPN ---
Subjective Subjective Date of Service: 12/23/22 Interval History: Was more comfortable yesterday, but seem to have more pain today adjusting morphine dose Physical Exam Vital Signs: Vital Signs: Last Vital Signs Temp 97.7 F 12/23/22 07:29 Pulse 84 12/23/22 07:29 Resp 15 12/23/22 09:06 BP 147/64 H 12/23/22 07:29 Pulse Ox 100 12/23/22 07:29 O2 Del Method Oxymask 12/23/22 07:29 O2 Flow Rate 4 12/23/22 07:29 BMI result Body Mass Index 25.0 Const: Other: No acute distress. Uncomfortable in bed Resp: Other: Clear to auscultation bilaterally no rales rhonchi or wheezes Cardio: Other: No S4; positive S1-S2; no S3 murmurs rubs or gallops GI: Other: Soft nontender nondistended normoactive bowel sounds Extrem: Other: No edema bilaterally Objective Data Active Medications Acetaminophen (Acetaminophen 325 Mg Tablet) 650 mg PO Q6H PRN PRN Reason: Pain, Mild (Pain Scale 1-3) Last Admin: 12/20/22 21:08 Dose: 650 mg Documented By: MIGUEL Apixaban (Apixaban 2.5 Mg Tablet) 2.5 mg PO BID [facility] Last Admin: 12/23/22 09:09 Dose: 2.5 mg Documented By: TABATHA Atorvastatin Calcium (Atorvastatin Calcium 40 Mg Tablet) 40 mg PO BEDTIME [facility] Last Admin: 12/22/22 20:45 Dose: 40 mg Documented By: PJ Bupropion HCl (Bupropion Hcl Xl 150 Mg Tab.Er.24h) 150 mg PO DAILY [facility] Last Admin: 12/23/22 09:09 Dose: 150 mg Documented By: TABATHA Cilostazol (Cilostazol 100 Mg Tablet) 100 mg PO BID [facility] Last Admin: 12/23/22 09:09 Dose: 100 mg Documented By: TABATHA Dextrose (Dextrose 50 % 25 Gm/50 Ml Syringe) 25 gm IVPUSH Q15M PRN; Protocol PRN Reason: per Hypoglycemia Standing Ord. Last Admin: 12/17/22 18:03 Dose: 25 gm Documented By: FARHANA Docusate Sodium (Docusate Sodium 100 Mg Capsule) 100 mg PO BID [facility] Last Admin: 12/23/22 09:18 Dose: Not Given Documented By: TABATHA Non-Admin Reason: pt unable to swallow pill whole Glucose (Glucose Gel 15 Gm Gel..Gram.) 15 gm PO Q15M PRN; Protocol PRN Reason: per Hypoglycemia Standing Ord. Insulin Human Lispro (Insulin Lispro 100 Unit/Ml 3 Ml Vial) 0 unit SUBCUT QIDACHS [facility]; Protocol Last Admin: 12/23/22 09:11 Dose: Not Given Documented By: TABATHA Non-Admin Reason: pt refused breakfast Loperamide HCl (Loperamide Hcl 2 Mg Capsule) 4 mg PO BID [facility] Last Admin: 12/23/22 09:09 Dose: 4 mg Documented By: TABATHA Morphine Sulfate (Morphine Sulfate 4 Mg/Ml Cartridge) 3 mg IVPUSH Q4H PRN; Protocol PRN Reason: Pain, Severe (Pain Scale 7-10) Nicotine (Nicotine 21 Mg Patch.Td24) 21 mg TRANSDERMA DAILY [facility] Last Admin: 12/23/22 09:20 Dose: 21 mg Documented By: TABATHA Oxycodone HCl (Oxycodone Hcl Immed Release 5 Mg Tablet) 10 mg PO Q4H PRN PRN Reason: Pain, Moderate(Pain Scale 4-6) Last Admin: 12/23/22 03:47 Dose: 10 mg Documented By: YANNICK Oxycodone HCl (Oxycodone Hcl Er 10 Mg Tab.Er.12h) 10 mg PO BID [facility] Last Admin: 12/23/22 06:24 Dose: 10 mg Documented By: YANNICK Pharmacy Consult (Consult Rx Perform Med Rec) 1 each MISCELLANE ONCE PRN PRN Reason: Consult order Pioglitazone HCl (Pioglitazone Hcl 30 Mg Tablet) 30 mg PO DAILY [facility] Last Admin: 12/23/22 09:15 Dose: 30 mg Documented By: TABATHA Polyethylene Glycol (Polyethylene Glycol 3350 17 Gm Powd.Pack) 17 gm PO DAILY PRN PRN Reason: Constipation Propranolol HCl (Propranolol Hcl 40 Mg Tablet) 40 mg PO DAILY [facility]; Protocol Last Admin: 12/23/22 09:09 Dose: 40 mg Documented By: TABATHA Sodium Chloride (0.9 % Sodium Chloride Flush 3 Ml Syringe) 3 ml IVFLUSH QSHIFT [facility] Last Admin: 12/23/22 09:08 Dose: 3 ml Documented By: TABATHA Labs 12/19/22 06:06 12/19/22 06:06 Labs: Laboratory Results - last 24 hr 12/22/22 12/22/22 12/22/22 11:02 16:11 19:58 POC Glucose 172 H 188 H 240 H 12/23/22 07:22 POC Glucose 160 H Microbiology Microbiology Results: Microbiology 12/17/22 13:16 Blood Culture - Final Blood - Venous No growth after 5 days. 12/17/22 13:17 Blood Culture - Final Blood - Venous No growth after 5 days. 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 Pt will be admitted to the [facility] forl treatment and further evaluation of?rhabdomyolysis, acute metabolic encephalopathy, UTI, and generalized weakness with IVF and IV antibiotics. 1.Rhabdomyolysis, cpk is trending down, less 100, dc IVF -unable to tolerate MRI, given history of spinal stenosis and multiple falls bilateral leg weakness may be related to nerve root impingement 3. Back pain--not able to tolerate MRI, get CT of thoracic spine, lumbar spine show T11 compression fracture. Oxycodone and Oxycontin. I spoke to daughter regarding further imaing with MRI or Bone scan to determined if compression fracture is new and at this point pt not interested in more imaging and wants pain med adjustment, will adjust morphine, add muscle relaxer 3Acute metabolic encephalopathy/UTI, culture = e coli -markedly improved -ceftriaxone to ceftin 4.Hypokalemia-corrected and resolved 5. Abdominal distention --improved following bowel movment, cdif negative DDNR/DNI Eliquis Requires ongoing hospitalization for workup of bilateral leg weakness and furthe, and optimizing pain management Time Spent With Patient Time: Total time managing care of this patient today ____ minutes. Quality Stroke Does the patient have a stroke diagnosis?: No VTE Prior VTE?: No VTE Risk Level:: Medical - moderate - high VTE Device Contraindication: Treatment Not Indicated VTE Drug Contraindication: N/A - Med Ordered
[2022-12-23 11:12] LABS: Glucose, Whole Blood 183 mg/dL (60-115)
[2022-12-23] MEDS: Cyclobenzaprine HCl 5 MG TABLET PO (12:29)
[2022-12-23] MEDS: Insulin Lispro 100 UNIT/ML 3 ML VIAL SUBCUT (12:29)
[2022-12-23] MEDS: Morphine Sulfate 4 MG/ML CARTRIDGE 3 MG IVPUSH ×2 (13:49→17:48)
[2022-12-23 16:43] LABS: Glucose, Whole Blood 128 mg/dL (60-115)
[2022-12-23 19:58] LABS: Glucose, Whole Blood 146 mg/dL (60-115)
[2022-12-23] MEDS: Atorvastatin Calcium 40 MG TABLET PO (21:58)
--- NOTE | 2022-12-24 02:17 | PC.NURSE ---
Assumed care at 1900. Pt is in bed. Sleepy/lethargic. Arousable not opening eyes. Able to follow commands.Right arms is noted to be colder than the left. +radial pulses.+movement. Bluish discoloration noted to fingers. MD notified.
[2022-12-24 04:00] VITALS: BP 183/74; PULSE 75; RESP 16; TEMP 36.4; O2SAT 95
[2022-12-24] MEDS: Morphine Sulfate 4 MG/ML CARTRIDGE 3 MG IVPUSH (05:30)
[2022-12-24 07:15] VITALS: BP 150/61; PULSE 80; RESP 16; TEMP 36.3; O2SAT 93
[2022-12-24 07:47] LABS: Glucose, Whole Blood 130 mg/dL (60-115)
--- NOTE | 2022-12-24 11:05 | HO.PM.IMPN ---
Subjective Subjective Date of Service: 12/24/22 Interval History: Continues to have back pain Physical Exam Vital Signs: Vital Signs: Last Vital Signs Temp 97.4 F 12/24/22 07:15 Pulse 80 12/24/22 07:15 Resp 16 12/24/22 07:15 BP 150/61 H 12/24/22 07:15 Pulse Ox 93 12/24/22 07:15 O2 Del Method Nasal Cannula 12/24/22 07:15 O2 Flow Rate 2 12/24/22 07:15 BMI result Body Mass Index 25.0 Const: Other: General: AO X 2, in some pain Resp: CTA bilateral CVS: S1,S2,RRR GI: +BS, NT, no distention Skin: No rash Neuro: motor grossly intact Psych: appropriate affect Objective Data Active Medications Acetaminophen (Acetaminophen 325 Mg Tablet) 650 mg PO Q6H PRN PRN Reason: Pain, Mild (Pain Scale 1-3) Last Admin: 12/20/22 21:08 Dose: 650 mg Documented By: MIGUEL Apixaban (Apixaban 2.5 Mg Tablet) 2.5 mg PO BID [facility] Last Admin: 12/24/22 10:25 Dose: Not Given Documented By: NOE Non-Admin Reason: Patient Refused Atorvastatin Calcium (Atorvastatin Calcium 40 Mg Tablet) 40 mg PO BEDTIME [facility] Last Admin: 12/23/22 21:58 Dose: 40 mg Documented By: MARILYN Bupropion HCl (Bupropion Hcl Xl 150 Mg Tab.Er.24h) 150 mg PO DAILY [facility] Last Admin: 12/24/22 10:25 Dose: Not Given Documented By: NOE Non-Admin Reason: Patient Refused Cilostazol (Cilostazol 100 Mg Tablet) 100 mg PO BID [facility] Last Admin: 12/24/22 10:25 Dose: Not Given Documented By: NOE Non-Admin Reason: Patient Refused Dextrose (Dextrose 50 % 25 Gm/50 Ml Syringe) 25 gm IVPUSH Q15M PRN; Protocol PRN Reason: per Hypoglycemia Standing Ord. Last Admin: 12/17/22 18:03 Dose: 25 gm Documented By: FARHANA Docusate Sodium (Docusate Sodium 100 Mg Capsule) 100 mg PO BID [facility] Last Admin: 12/24/22 10:25 Dose: Not Given Documented By: NOE Non-Admin Reason: Patient Refused Glucose (Glucose Gel 15 Gm Gel..Gram.) 15 gm PO Q15M PRN; Protocol PRN Reason: per Hypoglycemia Standing Ord. Insulin Human Lispro (Insulin Lispro 100 Unit/Ml 3 Ml Vial) 0 unit SUBCUT QIDACHS [facility]; Protocol Last Admin: 12/24/22 07:54 Dose: Not Given Documented By: NOE Non-Admin Reason: No Insulin Coverage Loperamide HCl (Loperamide Hcl 2 Mg Capsule) 4 mg PO BID [facility] Last Admin: 12/24/22 10:25 Dose: Not Given Documented By: NOE Non-Admin Reason: pt not having diarrhea Morphine Sulfate (Morphine Sulfate 4 Mg/Ml Cartridge) 3 mg IVPUSH Q4H PRN; Protocol PRN Reason: Pain, Severe (Pain Scale 7-10) Last Admin: 12/24/22 05:30 Dose: 3 mg Documented By: MARILYN Nicotine (Nicotine 21 Mg Patch.Td24) 21 mg TRANSDERMA DAILY [facility] Last Admin: 12/24/22 10:25 Dose: Not Given Documented By: NOE Non-Admin Reason: Patient Refused Oxycodone HCl (Oxycodone Hcl Er 10 Mg Tab.Er.12h) 10 mg PO BID [facility] Last Admin: 12/24/22 10:28 Dose: Not Given Documented By: NOE Non-Admin Reason: Patient Refused Pharmacy Consult (Consult Rx Perform Med Rec) 1 each MISCELLANE ONCE PRN PRN Reason: Consult order Pioglitazone HCl (Pioglitazone Hcl 30 Mg Tablet) 30 mg PO DAILY [facility] Last Admin: 12/24/22 10:28 Dose: Not Given Documented By: NOE Non-Admin Reason: Patient Refused Polyethylene Glycol (Polyethylene Glycol 3350 17 Gm Powd.Pack) 17 gm PO DAILY PRN PRN Reason: Constipation Propranolol HCl (Propranolol Hcl 40 Mg Tablet) 40 mg PO DAILY [facility]; Protocol Last Admin: 12/24/22 10:28 Dose: Not Given Documented By: NOE Non-Admin Reason: Patient Refused Sodium Chloride (0.9 % Sodium Chloride Flush 3 Ml Syringe) 3 ml IVFLUSH QSHIFT [facility] Last Admin: 12/24/22 10:25 Dose: Not Given Documented By: HO.FOSTEKR Non-Admin Reason: Patient Refused Labs 12/19/22 06:06 12/19/22 06:06 Labs: Laboratory Results - last 24 hr 12/23/22 12/23/22 12/23/22 11:08 16:37 19:54 POC Glucose 183 H 128 H 146 H 12/24/22 07:16 POC Glucose 130 H Assessment and Plan (1) UTI (urinary tract infection): Status: Acute (2) Frequent falls: Status: Acute Plan Pt is a 77-year-old male with a PMH significant for?with COPD, noninsulin dependent type 2 diabetes, 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 Pt will be admitted to the [facility] forl treatment and further evaluation of?rhabdomyolysis, acute metabolic encephalopathy, UTI, and generalized weakness with IVF and IV antibiotics. 1.Rhabdomyolysis, resolved off ivf -unable to tolerate MRI, given history of spinal stenosis and multiple falls bilateral leg weakness may be related to nerve root impingement 3. Back pain--not able to tolerate MRI, get CT of thoracic spine, lumbar spine show T11 compression fracture. Oxycodone and Oxycontin, adjust dose for better pain control, and consider fentanyl patch. I spoke to daughter regarding further imaing with MRI or Bone scan to determined if compression fracture is new and at this point pt not interested in more imaging and wants pain med adjustment, will adjust morphine, add muscle relaxer. 3Acute metabolic encephalopathy/UTI, culture = e coli -markedly improved -ceftriaxone to ceftin 4.Hypokalemia-corrected and resolved 5. Abdominal distention --improved following bowel movment, cdif negative DDNR/DNI Eliquis Requires ongoing hospitalization for workup of bilateral leg weakness and furthe, and optimizing pain management Time Spent With Patient Time: Total time managing care of this patient today ____ minutes. Quality Stroke Does the patient have a stroke diagnosis?: No VTE Prior VTE?: No VTE Risk Level:: Medical - moderate - high VTE Device Contraindication: Treatment Not Indicated VTE Drug Contraindication: N/A - Med Ordered
[2022-12-24 11:16] VITALS: BP 163/72; PULSE 77; RESP 16; TEMP 36.1; O2SAT 93
[2022-12-24 11:31] LABS: Glucose, Whole Blood 146 mg/dL (60-115)
[2022-12-24] MEDS: oxyCODONE HCl ER 10 MG TAB.ER.12H PO (12:09)
[2022-12-24] MEDS: Propranolol HCL 40 MG TABLET PO (12:10)
[2022-12-24] MEDS: buPROPion HCl XL 150 MG TAB.ER.24H PO (12:11)
[2022-12-24] MEDS: Apixaban 2.5 MG TABLET PO ×2 (12:11→20:52)
[2022-12-24] MEDS: cilostazoL 100 MG TABLET PO ×2 (12:12→20:52)
[2022-12-24] MEDS: Nicotine 21 MG PATCH.TD24 TRANSDERMA (12:12)
[2022-12-24] MEDS: Loperamide HCl 2 MG CAPSULE 4 MG PO ×2 (12:18→20:53)
[2022-12-24 15:07] VITALS: BP 154/60; PULSE 56; RESP 13; TEMP 36.3; O2SAT 96
[2022-12-24 16:04] LABS: Glucose, Whole Blood 165 mg/dL (60-115)
[2022-12-24] MEDS: Insulin Lispro 100 UNIT/ML 3 ML VIAL SUBCUT (16:29)
[2022-12-24] MEDS: 0.9 % Sodium Chloride Flush 3 ML SYRINGE IVFLUSH ×2 (16:31→20:53)
[2022-12-24 19:12] VITALS: BP 120/40; PULSE 60; RESP 12; TEMP 35.9; O2SAT 96
[2022-12-24 19:36] LABS: Glucose, Whole Blood 119 mg/dL (60-115)
[2022-12-24] MEDS: Atorvastatin Calcium 40 MG TABLET PO (20:52)
[2022-12-24 23:51] VITALS: BP 160/71; PULSE 107; RESP 18; TEMP 35.8; O2SAT 93
[2022-12-25] VITALS (11 sets, daily range): BP systolic 122–147; BP diastolic 58–66; PULSE 55–81; RESP 14–18; TEMP 36.1–36.2; O2SAT 91–96
[2022-12-25 07:49] LABS: Glucose, Whole Blood 133 mg/dL (60-115)
[2022-12-25] MEDS: Pioglitazone HCL 30 MG TABLET PO (10:03)
[2022-12-25] MEDS: Acetaminophen 325 MG TABLET 650 MG PO (10:03)
[2022-12-25] MEDS: buPROPion HCl XL 150 MG TAB.ER.24H PO (10:04)
[2022-12-25] MEDS: Loperamide HCl 2 MG CAPSULE 4 MG PO (10:04)
[2022-12-25] MEDS: Propranolol HCL 40 MG TABLET PO (10:04)
[2022-12-25] MEDS: cilostazoL 100 MG TABLET PO (10:04)
[2022-12-25] MEDS: Apixaban 2.5 MG TABLET PO (10:04)
[2022-12-25] MEDS: Nicotine 21 MG PATCH.TD24 TRANSDERMA (10:05)
--- NOTE | 2022-12-25 10:06 | HO.PM.IMPN ---
Subjective Subjective Date of Service: 12/25/22 Interval History: Pt with peristent pain in the back but was very drowsy overnight and so scheduled oxyxontin was help, she awake alert and 8/10 pain now Physical Exam Vital Signs: Vital Signs: Last Vital Signs Temp 97.0 F 12/25/22 07:27 Pulse 81 12/25/22 07:27 Resp 16 12/25/22 07:27 BP 141/66 H 12/25/22 07:27 Pulse Ox 91 L 12/25/22 07:27 O2 Del Method Nasal Cannula 12/25/22 07:27 O2 Flow Rate 2 12/25/22 07:27 BMI result Body Mass Index 25.0 Const: Other: General: AO X 2, in some pain Resp: CTA bilateral CVS: S1,S2,RRR GI: +BS, NT, no distention Skin: No rash Neuro: motor grossly intact Psych: appropriate affect Objective Data Active Medications Acetaminophen (Acetaminophen 325 Mg Tablet) 650 mg PO Q6H PRN PRN Reason: Pain, Mild (Pain Scale 1-3) Last Admin: 12/20/22 21:08 Dose: 650 mg Documented By: MIGUEL Apixaban (Apixaban 2.5 Mg Tablet) 2.5 mg PO BID [facility] Last Admin: 12/24/22 20:52 Dose: 2.5 mg Documented By: NAN Atorvastatin Calcium (Atorvastatin Calcium 40 Mg Tablet) 40 mg PO BEDTIME [facility] Last Admin: 12/24/22 20:52 Dose: 40 mg Documented By: NAN Bupropion HCl (Bupropion Hcl Xl 150 Mg Tab.Er.24h) 150 mg PO DAILY [facility] Last Admin: 12/24/22 12:11 Dose: 150 mg Documented By: FOSTEKR Cilostazol (Cilostazol 100 Mg Tablet) 100 mg PO BID [facility] Last Admin: 12/24/22 20:52 Dose: 100 mg Documented By: NAN Dextrose (Dextrose 50 % 25 Gm/50 Ml Syringe) 25 gm IVPUSH Q15M PRN; Protocol PRN Reason: per Hypoglycemia Standing Ord. Last Admin: 12/17/22 18:03 Dose: 25 gm Documented By: FARHANA Docusate Sodium (Docusate Sodium 100 Mg Capsule) 100 mg PO BID [facility] Last Admin: 12/24/22 20:56 Dose: Not Given Documented By: NAN Non-Admin Reason: pt with loose stools Glucose (Glucose Gel 15 Gm Gel..Gram.) 15 gm PO Q15M PRN; Protocol PRN Reason: per Hypoglycemia Standing Ord. Insulin Human Lispro (Insulin Lispro 100 Unit/Ml 3 Ml Vial) 0 unit SUBCUT QIDACHS [facility]; Protocol Last Admin: 12/25/22 07:56 Dose: Not Given Documented By: NOE Non-Admin Reason: No Insulin Coverage Loperamide HCl (Loperamide Hcl 2 Mg Capsule) 4 mg PO BID [facility] Last Admin: 12/24/22 20:53 Dose: 4 mg Documented By: NAN Morphine Sulfate (Morphine Sulfate 4 Mg/Ml Cartridge) 3 mg IVPUSH Q4H PRN; Protocol PRN Reason: Pain, Severe (Pain Scale 7-10) Last Admin: 12/24/22 05:30 Dose: 3 mg Documented By: MARILYN Nicotine (Nicotine 21 Mg Patch.Td24) 21 mg TRANSDERMA DAILY [facility] Last Admin: 12/24/22 12:12 Dose: 21 mg Documented By: NOE Oxycodone HCl (Oxycodone Hcl Er 10 Mg Tab.Er.12h) 10 mg PO BID [facility] Last Admin: 12/24/22 20:57 Dose: Not Given Documented By: NAN Non-Admin Reason: pt too drowsy Pharmacy Consult (Consult Rx Perform Med Rec) 1 each MISCELLANE ONCE PRN PRN Reason: Consult order Pioglitazone HCl (Pioglitazone Hcl 30 Mg Tablet) 30 mg PO DAILY [facility] Last Admin: 12/24/22 10:28 Dose: Not Given Documented By: NOE Non-Admin Reason: Patient Refused Polyethylene Glycol (Polyethylene Glycol 3350 17 Gm Powd.Pack) 17 gm PO DAILY PRN PRN Reason: Constipation Propranolol HCl (Propranolol Hcl 40 Mg Tablet) 40 mg PO DAILY [facility]; Protocol Last Admin: 12/24/22 12:10 Dose: 40 mg Documented By: NOE Comments: pt had previously refused Sodium Chloride (0.9 % Sodium Chloride Flush 3 Ml Syringe) 3 ml IVFLUSH QSHIFT [facility] Last Admin: 12/24/22 20:53 Dose: 3 ml Documented By: NAN Labs 12/19/22 06:06 12/19/22 06:06 Labs: Laboratory Results - last 24 hr 12/24/22 12/24/22 12/24/22 11:18 15:11 19:18 POC Glucose 146 H 165 H 119 H 12/25/22 07:28 POC Glucose 133 H Assessment and Plan (1) Back pain: Status: Acute Plan Pt is a 77-year-old male with a PMH significant for?with COPD, noninsulin dependent type 2 diabetes, 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 Pt will be admitted to the [facility] forl treatment and further evaluation of?rhabdomyolysis, acute metabolic encephalopathy, UTI, and generalized weakness with IVF and IV antibiotics. Back pain--not able to tolerate MRI, get CT of thoracic spine, lumbar spine show T11 compression fracture. Oxycodone and Oxycontin, adjust dose for better pain control, and consider fentanyl patch. I spoke to daughter regarding further imaing with MRI or Bone scan to determined if compression fracture is new and at this point pt not interested in more imaging and wants pain med adjustment, will adjust morphine, add muscle relaxer. try Lidocaine patch today Rhabdomyolysis, resolved off ivf -unable to tolerate MRI, given history of spinal stenosis and multiple falls bilateral leg weakness may be related to nerve root impingement Acute metabolic encephalopathy/UTI, culture = e coli -markedly improved -ceftriaxone to ceftin Hypokalemia-corrected and resolved Abdominal distention --improved following bowel movment, cdif negative DDNR/DNI Eliquis Requires ongoing hospitalization for workup of bilateral leg weakness and furthe, and optimizing pain management Overal seems uncomfortable and will discuss goals of care with daughter Time Spent With Patient Time: Total time managing care of this patient today ____ minutes. Quality Stroke Does the patient have a stroke diagnosis?: No VTE Prior VTE?: No VTE Risk Level:: Medical - moderate - high VTE Device Contraindication: Treatment Not Indicated VTE Drug Contraindication: N/A - Med Ordered
[2022-12-25] MEDS: Lidocaine 4 % Patch ADH..PATCH 1 PATCH TRANSDERMA (10:30)
[2022-12-25] MEDS: 0.9 % Sodium Chloride Flush 3 ML SYRINGE IVFLUSH ×2 (11:25→12:26)
[2022-12-25 11:44] LABS: Glucose, Whole Blood 154 mg/dL (60-115)
[2022-12-25] MEDS: Insulin Lispro 100 UNIT/ML 3 ML VIAL SUBCUT (12:25)
--- NOTE | 2022-12-25 13:16 | W.MHC.ACPN ---
Advanced Care Planning Note Advanced Care Planning Note Time spent (in minutes): 20 Narrative: Discussed goal of care with patient's duaghter over the phone and in person and given that patient continues to decline, minimal oral intake and continuing pain, daughter has decided that it would be in the patient's best interest to keep him comfortable. Will start morphine by ACCOUNT EXECUTIVE TRAINEE and adjust for maximum comfort. Problems Discussed (1) Back pain:
[2022-12-25] MEDS: Morphine Sulfate/NS 100 MG/100 ML PLAST..BAG IVCONT (15:11)
--- NOTE | 2022-12-25 15:26 | PC.NURSE ---
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 Morphine is running at starting rate of 1mg/hr and can be increased by 0.5mg/hr to a tyrone dose of 10mg/hr. PT rated pain level 9/10. patient is drowsy but arousable to name. RR is currently 16 and HR is 70bPM. MD aware. Will continue to monitor patient.
[2022-12-26] VITALS (8 sets, daily range): BP systolic 139–147; BP diastolic 64–65; PULSE 62–123; RESP 16–19; TEMP 36.5–37.3; O2SAT 74–93
--- NOTE | 2022-12-26 10:20 | HO.PM.IMPN ---
Subjective Subjective Date of Service: 12/26/22 Interval History: confort pain for intractable pain and adult failure to thrive, appear comfortable, minimally responsive Physical Exam Vital Signs: Vital Signs: Last Vital Signs Temp 97.7 F 12/26/22 03:33 Pulse 82 12/26/22 07:32 Resp 17 12/26/22 07:32 BP 147/64 H 12/26/22 00:36 Pulse Ox 93 12/26/22 03:33 O2 Del Method Oxymask 12/26/22 03:33 O2 Flow Rate 3 12/25/22 23:25 BMI result Body Mass Index 25.0 Objective Data Active Medications Morphine Sulfate (Morphine Sulfate/Ns) 100 mg in 100 mls @ 0 mls/hr IVCONT .Q0M [facility]; Protocol Last Infusion: 12/26/22 00:36 Dose: 3.5 mg/hr, 3.5 mls/hr Documented By: DEMI Lidocaine (Lidocaine 4 % Patch Adh..Patch) 1 patch TRANSDERMA DAILY [facility]; Protocol Last Admin: 12/25/22 10:30 Dose: 1 patch Documented By: NOE Labs 12/19/22 06:06 12/19/22 06:06 Labs: Laboratory Results - last 24 hr 12/25/22 11:01 POC Glucose 154 H Assessment and Plan (1) Back pain: Status: Acute (2) UTI (urinary tract infection): Status: Acute (3) Frequent falls: Status: Acute (4) Weakness: Status: Acute Plan Continue comfort care, continue morphine drip and adjust for comfor, ativan for anxiety, if possible will dc to snf Time Spent With Patient Time: Total time managing care of this patient today ____ minutes. Quality Stroke Does the patient have a stroke diagnosis?: No VTE Prior VTE?: No VTE Risk Level:: Medical - moderate - high VTE Device Contraindication: Treatment Not Indicated VTE Drug Contraindication: N/A - Med Ordered
--- NOTE | 2022-12-26 10:38 | MHC.CLN ---
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
--- NOTE | 2022-12-26 10:40 | MHC.CM.PN ---
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
[2022-12-26] MEDS: Lidocaine 4 % Patch ADH..PATCH 1 PATCH TRANSDERMA (11:34)
[2022-12-26] MEDS: Morphine Sulfate/NS 100 MG/100 ML PLAST..BAG IVCONT (23:22)
[2022-12-27 03:40] VITALS: RESP 14
[2022-12-27 06:00] VITALS: RESP 14
[2022-12-27 07:53] VITALS: RESP 16
--- NOTE | 2022-12-27 08:10 | HO.PM.IMPN ---
Subjective Subjective Date of Service: 12/27/22 Interval History: appears comfortable Physical Exam Vital Signs: Vital Signs: Last Vital Signs Temp 97.8 F 12/26/22 23:01 Pulse 118 H 12/26/22 23:01 Resp 16 12/27/22 07:53 BP 139/65 12/26/22 20:00 Pulse Ox 74 L 12/26/22 23:01 O2 Del Method Room Air 12/26/22 23:01 O2 Flow Rate 3 12/25/22 23:25 BMI result Body Mass Index 25.0 Const: Other: lying on side, no distress, appear comfortable, breathing easy Objective Data Active Medications Morphine Sulfate (Morphine Sulfate/Ns) 100 mg in 100 mls @ 0 mls/hr IVCONT .Q0M [facility]; Protocol Last Admin: 12/26/22 23:22 Dose: 3.5 mg/hr, 3.5 mls/hr Documented By: MIGUEL Lidocaine (Lidocaine 4 % Patch Adh..Patch) 1 patch TRANSDERMA DAILY [facility]; Protocol Last Admin: 12/26/22 11:34 Dose: 1 patch Documented By: SUSANA Labs 12/19/22 06:06 12/19/22 06:06 Assessment and Plan (1) Back pain: Status: Acute (2) UTI (urinary tract infection): Status: Acute (3) Frequent falls: Status: Acute (4) Weakness: Status: Acute Plan Intractable back pain, falls, UTI, encephalopathy, adult failure to thrive, malnutiion Continue comfort care, continue morphine drip and adjust for comfor, ativan for anxiety, if possible will dc to snf Time Spent With Patient Time: Total time managing care of this patient today ____ minutes. Quality Stroke Does the patient have a stroke diagnosis?: No VTE Prior VTE?: No VTE Risk Level:: Medical - moderate - high VTE Device Contraindication: Treatment Not Indicated VTE Drug Contraindication: N/A - Med Ordered
[2022-12-27] MEDS: Lidocaine 4 % Patch ADH..PATCH 1 PATCH TRANSDERMA (09:50)
[2022-12-27 11:22] VITALS: RESP 16
[2022-12-27 13:57] VITALS: PULSE 16
[2022-12-27 15:19] VITALS: RESP 16
[2022-12-27] MEDS: Scopolamine 1.5 MG PATCH.TD.3 EAR-BEHIND (15:50)
--- NOTE | 2022-12-27 17:02 | PM.DDS ---
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 Patient is alert and oriented to self only and thus incapable of providing accurate HPI.? HPI obtained from phone call her daughter and chart review.? Patient lives with daughter who notes patient was almost completely independent except for taking baths up until 2 weeks ago when he started to develop leg weakness and unsteadiness on his feet.? Patient began using a cane occasionally during the day but severely deteriorated over the weekend and began using a walker on Monday of this week.? For the past couple of days patient apparently has barely been able to ambulate on his own and has had 10+ falls in the house. Pt and daughter deny headstrike or LOC. Daughter also notes patient has been complaining of bilateral calf pain, and patient has had some increased confusion over the past couple of days. Of note, patient has a history of Crohn's disease but is intolerant of most medications, only takes Imodium b.i.d. Hospital course In the ED patient's BP little soft at 128/59. Labs were significant for leukocytosis of 11.9, stable H&H of 12.6/39 point, hypokalemia of 2.7, CPK of 1981. Troponins negative.? Renal function baseline. UA positive for UTI. CT of chest showed moderate emphysema with small left-sided effusion with overlying airspace disease, likely atelectasis.? Also showed likely pulmonary arterial hypertension.? CT of abdomen and pelvis with numerous findings: a 2.9 cm left adrenal mass that is nonspecific and could be further evaluated with outpatient nonemergent MRI; numerous hypodense foci of left kidney; diverticulosis without evidence of diverticulitis; mild circumferential thickening in the distal sigmoid colon and rectum with minimal pericolonic mesenteric stranding possibly reflective of proctitis; and T9 compression deformity of indeterminate age. CT?of head found no acute intracranial pathology.? CT of cervical spine found no fractures or dislocations.? Venous duplex of lower extremities showed no DVT demonstrated bilaterally, the right peroneal vein not well visualized.? Did find right popliteal fossa cyst measuring 2.4 x 1.8 cm. EKG demonstrated sinus tachycardia of [address] and T-wave abnormalities. Pt was treated with potassium chloride, morphine, IVF, and lidocaine patch. Pt will be admitted to the [facility] for treatment and further evaluation of?rhabdomyolysis, acute metabolic encephalopathy, UTI, and generalized weakness with IVF and IV antibiotics, adult failure to thrive. Over the course of hospitalization, continued to decline having more and more pain in the back limited any function further testing and intervention such as vertbroplasty was discuss with patient and daughter and did not want any intervention but rather wanted to be comfortable, his oral intake delcined and generally was failing, in the daughter wanted comfort measure only and patient on this day 12/27/22 at 4. 05 pm, daughter was at the bedside Final diagnoses Metabolic encephalopathy UTI Hypokalemia intractable back pain compression fracture of T11 Adult failure to thrive Frequent falls Rhabdomylosis Additional Data Attending physician: Esteban Ware MD
--- NOTE | 2023-01-04 16:57 | P.CDIM_ITS ---
PROVIDER RESPONSE TEXT: To clarify, the appropriate diagnosis supported by the clinical indicators: Moderate QUERY TEXT: PHYSICIAN'S DOCUMENTATION REQUEST Date of Query: 12/27/2022 11:49 AM EDT Patient Name: Gonzales De La Cruz Admit Date: 12/17/2022 Dear Esteban Ware, A review of the medical record indicates additional documentation may be needed. Please review below and update the documentation accordingly. Documentation includes the diagnosis of malnutrition. Additional clinical indicators from the record include: Per Hospitalist Progress note 12/27/22: adult failure to thrive, malnutrition Continue comfort care If possible, please provide additional specificity regarding the severity of the malnutrition using t he above information: Mild Moderate Severe Other (explain)Clinically unable to determine (explain)Thank you, Stephanie Best RN Use of terms such as suspected, likely, concern for, or probable (associated with a specific diagnosi s that is being evaluated, monitored, or treated as if it exists) are acceptable and can be coded in the inpatient se tting, when documented at the time of discharge. Please use your independent medical judgment in providing your response. THIS QUERY IS PART OF THE PERMANENT MEDICAL RECORD
== END 2022-12-27 16:05 | disposition expired | DRG 551 ==
LOC: HO.ED 11:42 → HO.EDOVER 13:06 → HO.IMC 13:25
PROVIDERS: Hospitalist; Physician Assistant; Admitting Provider Student in an Organized Health Care Education/Training Program; Emergency Provider Student in an Organized Health Care Education/Training Program; Visit Provider Internal Medicine
DX: S22.089A Unspecified fracture of T11-T12 vertebra, initial encounter for closed fracture (principal); G93.41 Metabolic encephalopathy; N39.0 Urinary tract infection, site not specified; M62.82 Rhabdomyolysis; J98.11 Atelectasis; K50.90 Crohn's disease, unspecified, without complications; E44.0 Moderate protein-calorie malnutrition; Q60.0 Renal agenesis, unilateral; E87.6 Hypokalemia; L89.222 Pressure ulcer of left hip, stage 2; B96.20 Unspecified Escherichia coli [E. coli] as the cause of diseases classified elsewhere; R62.7 Adult failure to thrive; E11.51 Type 2 diabetes mellitus with diabetic peripheral angiopathy without gangrene; Z66 Do not resuscitate; Z68.25 Body mass index [BMI] 25.0-25.9, adult; K59.03 Drug induced constipation; T40.2X5A Adverse effect of other opioids, initial encounter; W19.XXXA Unspecified fall, initial encounter; G89.11 Acute pain due to trauma; M47.20 Other spondylosis with radiculopathy, site unspecified; M48.00 Spinal stenosis, site unspecified; R29.6 Repeated falls; Z91.81 History of falling; E78.5 Hyperlipidemia, unspecified; J43.9 Emphysema, unspecified; F03.A0 Unspecified dementia, mild, without behavioral disturbance, psychotic disturbance, mood disturbance, and anxiety; Z86.718 Personal history of other venous thrombosis and embolism; Z79.01 Long term (current) use of anticoagulants; Z79.899 Other long term (current) drug therapy
CPT/HCPCS: 36415; 70450; 71260; 72125; 72128; 72131; 74177; 80048; 80053; 80143; 80179; 80307; 81001; 81003; 82550; 82947; 83605; 83735; 83880; 84484; 85025; 85027; 85610; 87040; 87086; 87088; 87186; 87493; 87635; 93005; 93970; 97162; 97530; 99285; J0696; J1100; J2060; J2270; Q9967

== ENCOUNTER → 2022-12-17 07:21 | Outpatient (BNV) | payer MEDICARE, OTHER, SELFPAY | PROVIDERS: Admitting Provider Student in an Organized Health Care Education/Training Program; Emergency Provider Student in an Organized Health Care Education/Training Program; Visit Provider Internal Medicine Cardiovascular Disease | DX: R53.1 Weakness (principal) | CPT/HCPCS: 93010 ==

== ENCOUNTER → 2022-12-17 12:58 | Outpatient (BNV) | payer MEDICARE, OTHER, SELFPAY | PROVIDERS: Admitting Provider Student in an Organized Health Care Education/Training Program; Emergency Provider Student in an Organized Health Care Education/Training Program; Visit Provider Student in an Organized Health Care Education/Training Program | DX: M54.9 Dorsalgia, unspecified (principal); N39.0 Urinary tract infection, site not specified; R29.6 Repeated falls; R53.1 Weakness | CPT/HCPCS: 99223; 99232; 99233; 99239; 99497; 99499 ==